=== PATIENT | female | born 1950 | race Caucasian/White ===

== ENCOUNTER 2018-01-10 13:59 | Inpatient (IN) | payer MEDICARE ==
[~2018-01-10] VITALS: Ht 162.6 cm; Wt 99.3 kg
[2018-01-10] MEDS: IV DEXTROSE 5 %-0.45 % NACL 1,000 ML IV SCH (16:45)
[2018-01-10 17:00] VITALS: BP 149/76
[2018-01-10] MEDS: ONDANSETRON PF 4 MG/2 ML VIAL. IV PRN (17:47)
[2018-01-10] MEDS: fentaNYL PF VIAL 100 MCG/2 ML VIAL IV PRN ×2 (17:56→20:24)
[2018-01-10] MEDS: MEROPENEM 1 GM in IV NORMAL SALINE 100ML 100 ML IV SCH (17:57)
[2018-01-10 19:00] VITALS: BP_SYST 130; BP_SYST 132; BP_DIAS 70; BP_DIAS 80
[2018-01-10] MEDS ORDERED: LISI-338 PO (20:13)
[2018-01-10 23:00] VITALS: BP 119/68
[2018-01-11] MEDS: IV DEXTROSE 5 %-0.45 % NACL 1,000 ML IV SCH (00:02)
[2018-01-11] MEDS: MEROPENEM 1 GM in IV NORMAL SALINE 100ML 100 ML IV SCH ×4 (00:03→21:38)
[2018-01-11] MEDS: fentaNYL PF VIAL 100 MCG/2 ML VIAL IV PRN ×5 (00:03→19:51)
[2018-01-11 03:00] VITALS: BP 143/101
[2018-01-11 04:13] LABS: BASO % 1 % (0-3); EOS % 1 % (0-3); HEMATOCRIT 45.7 % (36.0-47.0); LYMPH # 1.1 x10^3/uL (1.0-4.8); LYMPH % 13 % (24-48); MEAN CORPUSCULAR HEMOGLOBIN 33 pg (25-35); MEAN CORPUSCULAR HGB CONC 35 g/dL (31-37); MEAN CORPUSCULAR VOLUME 93 fL (79-100); MONO # 0.5 x10^3/uL (0.0-1.1); MONO % 6 % (0-9); NEUT # 6.3 x10^3uL (1.8-7.7); NEUT % 80 % (31-73); PLATELET COUNT 217 x10^3/uL (140-400); RED BLOOD COUNT 4.92 x10^6/uL (3.50-5.40); RED CELL DISTRIBUTION WIDTH 14.1 % (11.5-14.5)
[2018-01-11 04:18] LABS: PROTHROMBIN TIME PATIENT 12.8 SEC (11.7-14.0)
[2018-01-11 04:23] LABS: CALCIUM 11.2 mg/dL (8.5-10.1); CREATININE 0.8 mg/dL (0.6-1.0); GFR 71.1; POTASSIUM 3.2 mmol/L (3.5-5.1)
[2018-01-11 04:29] LABS: ALBUMIN 3.7 g/dL (3.4-5.0); ALBUMIN/GLOBULIN RATIO 1.1 (1.0-1.7); TOTAL PROTEIN 7.2 g/dL (6.4-8.2)
[2018-01-11 07:00] VITALS: BP 124/75
[2018-01-11] MEDS ORDERED: IV NORMAL SALINE 1000ML BAG 1,000 ML IV SCH (09:00)
--- NOTE | 2018-01-11 09:04 | PDOC2 ---
GI CONSULT Reason For Consult: Gallstone Pancreatitis HPI: HPI: Patricia Conde is a 67 years old female patient with past medical history of hypertension and fibromyalgia. She is currently admitted to the hospital as a transfer from [facility] with concern of gall stone pancreatitis She presented to out side hospital with abdominal pain of several days. She also has not been feeling well lately with decreased oral intake. She also reported to have yellowish discoloration of the eyes.She had battery of blood tests and imaging of abdomen and pelvis at [facility] that was concerning for gall stone pancreatitis. Blood work done on 01/10 was notable for elevated liver function tests with total bilirubin 7.7, AST 236, ALT 261 and ALP 230. Lipase was elevated to 59,500. Imaging with CT 01/10/2018 notable for numerous gall stones. There was also stones (measuring 0.7x0.4x1.2cm) identified in the distal common bile duct which was dilated up to 1.1cm. Patient now reports that her abdominal pain has improved. She reports she feels hungry and would like to start eating again. She denies fever, chills or sweating. No chest pain, sob or PND. No vomiting, hematemesis,melena or hematochezia. She denies any other acute symptoms. She denies heavy alcohol consumption or use of illicit drugs. FH: Family History: No pertinent hx Social History: ALCOHOL: rare Drugs: None ROS: GEN: Denies fevers, chills, sweats HEENT: Denies blurred vision, sore throat CV: Denies chest pain RESP: Denies shortness of air, cough GI: Per HPI : Denies hematuria, dysuria ENDO: Denies weight changes NEURO: Denies confusion, dizziness MSK: Denies weakness, joint pain/swelling SKIN: Denies jaundice, pruritus Vitals: Vitals: Vital Signs Date Time Temp Pulse Resp B/P (MAP) Pulse Ox O2 Delivery O2 Flow Rate FiO2 01/11/18 07:00 98.0 73 18 124/75 (91) 96 Room Air 98.0 Labs: Labs: Laboratory Tests Test 01/11/18 03:30 White Blood Count 8.0 x10^3/uL (4.0-11.0) Red Blood Count 4.92 x10^6/uL (3.50-5.40) Hemoglobin 16.0 g/dL (12.0-15.5) Hematocrit 45.7 % (36.0-47.0) Mean Corpuscular Volume 93 fL (79-100) Mean Corpuscular Hemoglobin 33 pg (25-35) Mean Corpuscular Hemoglobin Concent 35 g/dL (31-37) Red Cell Distribution Width 14.1 % (11.5-14.5) Platelet Count 217 x10^3/uL (140-400) Neutrophils (%) (Auto) 80 % (31-73) Lymphocytes (%) (Auto) 13 % (24-48) Monocytes (%) (Auto) 6 % (0-9) Eosinophils (%) (Auto) 1 % (0-3) Basophils (%) (Auto) 1 % (0-3) Neutrophils # (Auto) 6.3 x10^3uL (1.8-7.7) Lymphocytes # (Auto) 1.1 x10^3/uL (1.0-4.8) Monocytes # (Auto) 0.5 x10^3/uL (0.0-1.1) Eosinophils # (Auto) 0.0 x10^3/uL (0.0-0.7) Basophils # (Auto) 0.0 x10^3/uL (0.0-0.2) Prothrombin Time 12.8 SEC (11.7-14.0) Prothromb Time International Ratio 1.0 (0.8-1.1) Sodium Level 144 mmol/L (136-145) Potassium Level 3.2 mmol/L (3.5-5.1) Chloride Level 106 mmol/L (98-107) Carbon Dioxide Level 25 mmol/L (21-32) Anion Gap 13 (6-14) Blood Urea Nitrogen 15 mg/dL (7-20) Creatinine 0.8 mg/dL (0.6-1.0) Estimated GFR (Cockcroft-Gault) 71.1 BUN/Creatinine Ratio 19 (6-20) Glucose Level 97 mg/dL (70-99) Calcium Level 11.2 mg/dL (8.5-10.1) Total Bilirubin 8.0 mg/dL (0.2-1.0) Aspartate Amino Transf (AST/SGOT) 172 U/L (15-37) Alanine Aminotransferase (ALT/SGPT) 217 U/L (14-59) Alkaline Phosphatase 247 U/L (46-116) Total Protein 7.2 g/dL (6.4-8.2) Albumin 3.7 g/dL (3.4-5.0) Albumin/Globulin Ratio 1.1 (1.0-1.7) Lipase 94350 U/L (73-393) Allergies: Coded Allergies: hydrocodone (Verified Allergy, Severe, Shortness of Air, 01/10/18) iodine (Verified Allergy, Severe, Shortness of Air, 01/10/18) Penicillins (Verified Allergy, Intermediate, Hives, 01/10/18) TOLERATES ROCEPHIN codeine (Verified Allergy, Intermediate, Rash, 01/10/18) Medications: Current Medications Medications (Trade) Dose Ordered Sig/Priti Route PRN Reason Start Time Stop Time Status Last Admin Dose Admin Fentanyl Citrate (Fentanyl 2ml Vial) 50 mcg PRN Q2HR PRN IV PAIN 01/10/18 16:45 01/11/18 06:11 Ondansetron HCl (Zofran) 4 mg PRN Q4HRS PRN IV NAUSEA/VOMITING 01/10/18 16:45 01/10/18 17:47 Dextrose/Sodium Chloride 1,000 ml @ 100 mls/hr Q10H IV 01/10/18 16:45 01/11/18 00:02 Meropenem 1 gm/ Sodium Chloride 100 ml @ 200 mls/hr Q8HRS IV 01/10/18 17:30 01/11/18 06:10 Imaging: Imaging: CT OF ABDOMEN AND PELVIS WITH IV CONTRAST 01/10/2018 - Cholelithiasis. - Choledocholithiasis with common biliary ductal dilation. -Peripancreatic inflammatory changes extending inferior to the third portion of duodenum. -Possible nabothian cyst in the urinary bladder. PE: GEN: NAD HEENT: Atraumatic, PERRLA LUNGS: CTAB HEART: RRR, no murmurs ABD: Full abdomen that moves with respiration. Has direct tenderness in upper abdomen. No guarding or rebound tenderness. EXTREMITY: No edema SKIN: No rashes, no jaundice NEURO/PSYCH: A & O 3 A/P: A/P: Patricia Conde is a 67 years old female patient with past medical history of hypertension and fibromyalgia. She is currently admitted to the hospital as a transfer from [facility] with concern of gall stone pancreatitis after she presented with abdominal pain. her labs were notable for elevated liver function tests with total bilirubin 7.7, AST 236, ALT 261 and alkaline phosphatase 230. Lipase was elevated to 59, 500. Imaging with CT 01/10/2018 notable for numerous gall stones along with choledocholithiasis with evidence of stones measuring 0.7x0.4x1.2cm identified in the distal common bile duct which was dilated up to 1.1cm. Overall, her symptoms including abdominal pain is improving. Reviewed also her labs from this morning and noted AST was 172, ALT 217, ALP 247 and total bilirubin 8.0. Lipase was [address]. Recommendations - Advise to start CLD for today. - IV hydration with isotonic crystalloids 200 cc per hour. - Please send for blood cultures. - Continue with iv antibiotics as per primary team. - Continue with pain management. - NPO after midnight. - ERCP tomorrow. - Needs to have cholecystectomy before patient discharged from hospital. This was discussed with . - GI available for any Q's. MEGGAN YARBROUGH MD Jan 11, 2018 09:04
--- NOTE | 2018-01-11 09:32 | PDOC2 ---
CONSULT Date of Consult Date of Consult DATE: 01/11/18 TIME: 09:28 Reason for Consult Reason for Consult: Abdominal pain Referring Physician Referring Physician: Fran Identification/Chief Complaint Chief Complaint Abdominal pain Source Source: Patient History of Present Illness Reason for Visit: 67-year-old female who's had right upper quadrant abdominal pain radiating to her back she also has noticed yellowing color of her urine. She states that she has had some abdominal or stomach pain for the last 7 months the most recently was more severe and she was concerned with yellowing color of her urine and skin. Past Medical History Cardiovascular: No pertinent hx Pulmonary: No pertinent hx GI: No pertinent hx Heme/Onc: No pertinent hx Hepatobiliary: No pertinent hx Psych: No pertinent hx Rheumatologic: No pertinent hx Infectious disease: No pertinent hx Renal/: No pertinent hx Endocrine: No pertinent hx Dermatology: No pertinent hx Past Surgical History Past Surgical History: Tubal Ligation Family History Family History: No Significant Social History No ALCOHOL: rare Drugs: None Lives: with Family Current Medications Current Medications Current Medications Fentanyl Citrate (Fentanyl 2ml Vial) 50 mcg PRN Q2HR PRN IV PAIN Last administered on 01/11/18at 06:11; Start 01/10/18 at 16:45 Ondansetron HCl (Zofran) 4 mg PRN Q4HRS PRN IV NAUSEA/VOMITING Last administered on 01/10/18at 17:47; Start 01/10/18 at 16:45 Dextrose/Sodium Chloride 1,000 ml @ 100 mls/hr Q10H IV Last administered on at 00:02; Start 01/10/18 at 16:45; Stop 01/11/18 at 08:49; Status DC Meropenem 1 gm/ Sodium Chloride 100 ml @ 200 mls/hr Q8HRS IV Last administered on 01/11/18at 06:10; Start 01/10/18 at 17:30 Sodium Chloride 1,000 ml @ 150 mls/hr Q6H40M IV ; Start 01/11/18 at 09:00 Active Scripts Active Reported Lisinopril 5 Mg Tablet 1 Tab PO DAILY Allergies Allergies: Coded Allergies: hydrocodone (Verified Allergy, Severe, Shortness of Air, 01/10/18) iodine (Verified Allergy, Severe, Shortness of Air, 01/10/18) Penicillins (Verified Allergy, Intermediate, Hives, 01/10/18) TOLERATES ROCEPHIN codeine (Verified Allergy, Intermediate, Rash, 01/10/18) ROS Gastrointestinal: Yes Abdominal Pain Physical Exam General: Alert, Oriented X3, Cooperative, mild distress HEENT: Atraumatic, PERRLA, EOMI Lungs: Clear to auscultation, Normal air movement Heart: Regular rate, No murmurs Abdomen: Normal bowel sounds, Soft, Other (mildly tender in the right upper quadrant) Extremities: No edema Skin: No significant lesion Neuro: Normal speech Psych/Mental Status: Mental status NL Vitals VITALS Vital Signs Date Time Temp Pulse Resp B/P (MAP) Pulse Ox O2 Delivery O2 Flow Rate FiO2 01/11/18 07:00 98.0 73 18 124/75 (91) 96 Room Air 98.0 Labs Labs Laboratory Tests Test 01/11/18 03:30 White Blood Count 8.0 x10^3/uL (4.0-11.0) Red Blood Count 4.92 x10^6/uL (3.50-5.40) Hemoglobin 16.0 g/dL (12.0-15.5) Hematocrit 45.7 % (36.0-47.0) Mean Corpuscular Volume 93 fL (79-100) Mean Corpuscular Hemoglobin 33 pg (25-35) Mean Corpuscular Hemoglobin Concent 35 g/dL (31-37) Red Cell Distribution Width 14.1 % (11.5-14.5) Platelet Count 217 x10^3/uL (140-400) Neutrophils (%) (Auto) 80 % (31-73) Lymphocytes (%) (Auto) 13 % (24-48) Monocytes (%) (Auto) 6 % (0-9) Eosinophils (%) (Auto) 1 % (0-3) Basophils (%) (Auto) 1 % (0-3) Neutrophils # (Auto) 6.3 x10^3uL (1.8-7.7) Lymphocytes # (Auto) 1.1 x10^3/uL (1.0-4.8) Monocytes # (Auto) 0.5 x10^3/uL (0.0-1.1) Eosinophils # (Auto) 0.0 x10^3/uL (0.0-0.7) Basophils # (Auto) 0.0 x10^3/uL (0.0-0.2) Prothrombin Time 12.8 SEC (11.7-14.0) Prothromb Time International Ratio 1.0 (0.8-1.1) Sodium Level 144 mmol/L (136-145) Potassium Level 3.2 mmol/L (3.5-5.1) Chloride Level 106 mmol/L (98-107) Carbon Dioxide Level 25 mmol/L (21-32) Anion Gap 13 (6-14) Blood Urea Nitrogen 15 mg/dL (7-20) Creatinine 0.8 mg/dL (0.6-1.0) Estimated GFR (Cockcroft-Gault) 71.1 BUN/Creatinine Ratio 19 (6-20) Glucose Level 97 mg/dL (70-99) Calcium Level 11.2 mg/dL (8.5-10.1) Total Bilirubin 8.0 mg/dL (0.2-1.0) Aspartate Amino Transf (AST/SGOT) 172 U/L (15-37) Alanine Aminotransferase (ALT/SGPT) 217 U/L (14-59) Alkaline Phosphatase 247 U/L (46-116) Total Protein 7.2 g/dL (6.4-8.2) Albumin 3.7 g/dL (3.4-5.0) Albumin/Globulin Ratio 1.1 (1.0-1.7) Lipase 40368 U/L (73-393) Laboratory Tests Test 01/11/18 03:30 White Blood Count 8.0 x10^3/uL (4.0-11.0) Red Blood Count 4.92 x10^6/uL (3.50-5.40) Hemoglobin 16.0 g/dL (12.0-15.5) Hematocrit 45.7 % (36.0-47.0) Mean Corpuscular Volume 93 fL (79-100) Mean Corpuscular Hemoglobin 33 pg (25-35) Mean Corpuscular Hemoglobin Concent 35 g/dL (31-37) Red Cell Distribution Width 14.1 % (11.5-14.5) Platelet Count 217 x10^3/uL (140-400) Neutrophils (%) (Auto) 80 % (31-73) Lymphocytes (%) (Auto) 13 % (24-48) Monocytes (%) (Auto) 6 % (0-9) Eosinophils (%) (Auto) 1 % (0-3) Basophils (%) (Auto) 1 % (0-3) Neutrophils # (Auto) 6.3 x10^3uL (1.8-7.7) Lymphocytes # (Auto) 1.1 x10^3/uL (1.0-4.8) Monocytes # (Auto) 0.5 x10^3/uL (0.0-1.1) Eosinophils # (Auto) 0.0 x10^3/uL (0.0-0.7) Basophils # (Auto) 0.0 x10^3/uL (0.0-0.2) Prothrombin Time 12.8 SEC (11.7-14.0) Prothromb Time International Ratio 1.0 (0.8-1.1) Sodium Level 144 mmol/L (136-145) Potassium Level 3.2 mmol/L (3.5-5.1) Chloride Level 106 mmol/L (98-107) Carbon Dioxide Level 25 mmol/L (21-32) Anion Gap 13 (6-14) Blood Urea Nitrogen 15 mg/dL (7-20) Creatinine 0.8 mg/dL (0.6-1.0) Estimated GFR (Cockcroft-Gault) 71.1 BUN/Creatinine Ratio 19 (6-20) Glucose Level 97 mg/dL (70-99) Calcium Level 11.2 mg/dL (8.5-10.1) Total Bilirubin 8.0 mg/dL (0.2-1.0) Aspartate Amino Transf (AST/SGOT) 172 U/L (15-37) Alanine Aminotransferase (ALT/SGPT) 217 U/L (14-59) Alkaline Phosphatase 247 U/L (46-116) Total Protein 7.2 g/dL (6.4-8.2) Albumin 3.7 g/dL (3.4-5.0) Albumin/Globulin Ratio 1.1 (1.0-1.7) Lipase 63931 U/L (73-393) Images Images CT scan shows cholelithiasis and choledocholithiasis with inflammation of the pancreas Assessment/Plan Assessment/Plan Gallstone pancreatitis agree with GIs recommendation for ERCP and will follow with cholecystectomy once pancreatitis has resolved SANTOS DEUTSCH MD Jan 11, 2018 09:32
[2018-01-11] MEDS: POTASSIUM CL 40MEQ D5-0.45NACL 1,000 ML IV SCH ×3 (10:59→23:20)
[2018-01-11] MEDS: ONDANSETRON PF 4 MG/2 ML VIAL. IV PRN ×2 (11:03→16:37)
[2018-01-11 11:13] VITALS: BP 111/70
[2018-01-11 11:24] LABS: BILIRUBIN,URINE LARGE (NEG); CLARITY,URINE CLEAR; COLOR,URINE ORANGE; NITRITE,URINE NEGATIVE (NEG); PH,URINE 5.5; PROTEIN,URINE NEGATIVE (NEG-TRACE)
[2018-01-11 11:42] LABS: SQUAMOUS EPITHELIAL CELL,UR MOD /LPF
[2018-01-11 11:43] LABS: BACTERIA,URINE 0 /HPF (0-FEW); RBC,URINE 0 /HPF (0-2); WBC,URINE OCC /HPF (0-4)
--- NOTE | 2018-01-11 12:34 | HP ---
ADMIT DATE: 01/11/2018 HISTORY OF PRESENT ILLNESS: The patient is a 67-year-old female patient who was seen yesterday at [facility] Emergency Room with a complaint of right upper quadrant pain that apparently has been going on for almost 10 days. She has also some nausea, chills, has not been able to eat and was evaluated in the Emergency Room. Her lab work showed that her serum lipase was 59,500. Her liver enzymes are also markedly elevated, has had a CT scan of the abdomen, which showed that she has dilated intrahepatic and extrahepatic biliary tract, and was diagnosed with gallstone pancreatitis, was transferred to [facility] for further evaluation and to consult the surgical team as well as the foam fabricator. When she arrived to [facility] she continued to be in severe pain. We started her on fentanyl 50 mcg IV, IV fluid, kept her n.p.o. and added also meropenem as she has a biliary obstruction that might lead to ascending cholangitis, and we also consulted Dr. Calloway and Dr. Garcia. PAST MEDICAL HISTORY: Significant for hypertension, fibromyalgia, generalized osteoarthritis. PAST SURGICAL HISTORY: Significant for tubal ligation, hemorrhoidectomy. She also had colonoscopy and esophagogastroduodenoscopy. ALLERGIES: SHE IS ALLERGIC TO PENICILLIN, CODEINE, HYDROCODONE, AND IODINE. MEDICATIONS: She is on following medication at home: She is on lisinopril 5 mg once a day. She is also on ibuprofen 800 mg twice a day. FAMILY HISTORY: She has one sister older at the age of 72 and has diabetes. Her brother at age of 38 because of myocardial infarction. Her father at age of 83 and underwent bypass surgery x 3. Mother at the age of 93 and was healthy. SOCIAL HISTORY: She is , has 3 daughters. She has never smoked, never drank alcohol and never used any drugs. 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 REVIEW OF SYSTEMS: The patient denied any blurring of vision, cataract, glaucoma or macular degeneration. Denied any earache, tinnitus or sensorineural deafness. Denied any nosebleeds, stuffy nose or postnasal drip. She did complain of nausea, but no vomiting. Denied any diarrhea or constipation. Denied any hematemesis, melena or hematochezia. Denied any dysuria, frequency or hematuria. Denied any chest pain, shortness of breath, orthopnea or paroxysmal nocturnal dyspnea. Denied any cough, phlegm or hemoptysis. Did complain of chills, but denied any fevers or rigors. PHYSICAL EXAMINATION: GENERAL: When she arrived to the hospital, she looked pale, but no jaundice or cyanosis. No lymphadenopathy, no thyromegaly, no jugular venous distension. No lower limb edema. VITAL SIGNS: Her heart rate was 70, blood pressure 149/76, temperature was 97.9, respiratory rate 20, and oxygen saturation was 98%. HEAD, EYES, EARS, NOSE AND THROAT: Showed normocephalic, atraumatic. NECK: Supple. HEART: Showed normal first and second heart sounds. No gallop, rub or murmur. CHEST: Clear to auscultation. No crepitation or rhonchi. ABDOMEN: Distended with tenderness mostly in the right upper quadrant. There is no guarding or rigidity. No organomegaly. All hernial orifices intact. Bowel sounds normal. NEUROLOGIC: She is awake, alert, responding appropriately. All her cranial nerves are intact. She moves all extremities without difficulty. LABORATORY DATA: Her lab work that were done at the [facility] Emergency Room showed that her serum sodium was 136, potassium 3.4, chloride 102, bicarbonate 22, anion gap of 12, BUN 15, creatinine 0.8, estimated GFR was 71 mL per minute. Her glucose was 133, calcium was 11.6. Total bilirubin was 7.7, AST 236, ALT 261, alkaline phosphatase was 230. Her troponin was less than 0.017. Total protein was 7.1, albumin 4, globulin was 3.1. Her serum lipase was 59,500. Her white cell count was 10,000, hemoglobin was 16, hematocrit 45, MCV 91, and platelet count of 202,000 with normal manual differential. Her urinalysis showed urine was kailey colored with a pH of 5, specific gravity of 1.015, and there was large amount of bilirubin, a small amount of ketones. Urine was negative for blood, protein, nitrite and leukocyte esterase. She apparently has had a CT scan of the abdomen, which showed that evaluation of the solid abdominal viscera is limited without the use of IV contrast; however, the liver, spleen, adrenal glands are unremarkable. Numerous dense gallstones 0.7 x 0.4 x 1.2 cm stones in the distal common bile duct, associated biliary ductal dilatation with the common bile duct measuring up to 1.1 cm, peripancreatic inflammatory changes that extend inferior to the third portion of the duodenum. The kidneys are unremarkable. There is no significant mesenteric retroperitoneal adenopathy identified, though evaluation is limited without intravenous contrast. There is no evidence of free intraperitoneal fluid or pneumoperitoneum. The patient has mild colonic diverticulosis without evidence of diverticulitis, portion of the small and large bowel are relatively decompressed, which limits evaluation for wall thickening. Normal appendix, no evidence of obstruction, mild atherosclerosis of the abdominal aorta and its branches, small fat containing umbilical hernia. Her bladder was un-distended. There are possible nabothian cysts, not well evaluated, noncontrasted CT. There is no trace pelvic ascites. No significant iliac and inguinal lymphadenopathy identified and no acute osseous abdominal abnormality, with the impression that the patient has choledocholithiasis with common bile duct ductal dilatation, peripancreatic inflammatory changes, could be secondary to obstructive biliary ductal stone, acute pancreatitis not excluded. She has inflammatory changes also extending inferior to the third portion of the duodenum. This also may be reactive to the above process, although duodenitis not excluded, cholelithiasis, however, no pericholecystic fluid or gallbladder wall thickening. PLAN: The patient was started on IV fluid, IV antibiotic, fentanyl 50 mcg IV every 3 hours, together with Zofran 4 mg IV every 4 hours. We will consult Dr. Calloway, the surgeon production planner, as well as the foam fabricator. We will monitor her lab work closely. She will probably require ERCP and eventually cholecystectomy. SAM BURTON MD DR: RUDDY/eugene JOB#: [id number] / [id number]
[2018-01-11 15:00] VITALS: BP 149/76
[2018-01-11 19:00] VITALS: BP 151/74
--- NOTE | 2018-01-11 20:17 | PN ---
DATE: 01/11/2018 SUBJECTIVE: The patient was admitted yesterday with gallstone pancreatitis. She was kept n.p.o., started on IV fluid, IV pain medication and prophylactic antibiotics. When I saw her this morning, she was sitting up in bed, eating her breakfast. Her pain is much better controlled. She has denied any nausea or vomiting. OBJECTIVE: GENERAL: When I saw her this morning, she looked well. There is no pallor, but she is jaundiced, not cyanosed. No lymphadenopathy, no thyromegaly. No jugular venous distension. No lower limb edema. VITAL SIGNS: Her heart rate was 73, blood pressure was 124/75, temperature was 98, respiratory rate was 18 and oxygen saturation was 96%. HEAD, EYES, EARS, NOSE AND THROAT: Normocephalic, atraumatic. NECK: Supple. HEART: Showed normal first and second sounds. No gallop, rub or murmur. CHEST: Clear to auscultation. No crepitation or rhonchi. ABDOMEN: Distended, soft, no tenderness. No guarding or rigidity. No organomegaly with hernial orifice intact. Bowel sounds normal. NEUROLOGIC: She is awake, alert, responding appropriately. All cranial nerves are intact. She moves extremities without difficulty. Her intake over the last 24 hours was 1465. No output was recorded. LABORATORY DATA: Her lab work this morning showed that her white cell count was 8000, hemoglobin 16, hematocrit 45, MCV 93, and platelet count of 217,000. Her prothrombin time was 12.8, INR of 1. Her chemistry showed serum sodium of potassium 3.2, chloride 106, bicarbonate 25, anion gap of 13, BUN 15, creatinine 0.8, estimated GFR was 71 mL per minute. Her glucose was 97, calcium was high at 11.2. Her total bilirubin 8. AST, ALT, alkaline phosphatase are all elevated. Total protein was 7.2, albumin was 3.7. Her lipase is down to 12,440. ASSESSMENT: Gallstone pancreatitis, cholelithiasis and choledocholithiasis, cholestatic jaundice, hypertension and hypercalcemia as well as hypokalemia. PLAN: To change IV fluid to D5 half normal with 40 mEq of potassium chloride. I will check her intact PTH as she probably has primary hyperparathyroidism as well as serum phosphorus. Meanwhile, we will continue with fentanyl as well as ondansetron for pain and antiemetic, and meropenem to prevent ascending cholangitis. SAM BURTON MD DR: RUDDY/eugene JOB#: [id number] / [id number]
[2018-01-11 23:00] VITALS: BP 122/74
[2018-01-12] MEDS: fentaNYL PF VIAL 100 MCG/2 ML VIAL IV PRN ×6 (02:08→20:34)
[2018-01-12] MEDS: ONDANSETRON PF 4 MG/2 ML VIAL. IV PRN ×2 (02:08→10:23)
[2018-01-12 03:00] VITALS: BP 136/74
[2018-01-12] MEDS: POTASSIUM CL 40MEQ D5-0.45NACL 1,000 ML IV SCH ×3 (05:45→16:52)
[2018-01-12] MEDS: MEROPENEM 1 GM in IV NORMAL SALINE 100ML 100 ML IV SCH ×3 (05:45→20:35)
[2018-01-12 07:00] VITALS: BP 112/77
[2018-01-12] MEDS ORDERED: LIDOCAINE 1% PF 2 ML VIAL. ID PRN (07:45)
[2018-01-12] MEDS ORDERED: fentaNYL PF VIAL 100 MCG/2 ML VIAL IV PRN ×2 (07:45)
[2018-01-12] MEDS ORDERED: MIDAZOLAM HCL/PF 2 MG/2 ML VIAL. IV PRN (07:45)
[2018-01-12 08:05] LABS: ALBUMIN 2.9 g/dL (3.4-5.0); ALBUMIN/GLOBULIN RATIO 0.8 (1.0-1.7); CALCIUM 10.7 mg/dL (8.5-10.1); CREATININE 0.7 mg/dL (0.6-1.0); PHOSPHORUS 1.3 mg/dL (2.6-4.7); TOTAL BILIRUBIN 3.5 mg/dL (0.2-1.0); TOTAL PROTEIN 6.4 g/dL (6.4-8.2)
--- NOTE | 2018-01-12 08:35 | PDOC ---
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[employer] INSTRUCTOR 01/12/18 0835: SURGICAL PROGRESS NOTE Subjective some RUQ pain, controlled with meds no emesis Vital Signs Vital Signs Date Time Temp Pulse Resp B/P (MAP) Pulse Ox O2 Delivery O2 Flow Rate FiO2 01/12/18 07:00 98.5 69 18 112/77 (89) 96 Room Air 98.5 I&O Intake and Output 01/12/18 07:00 Intake Total 5690 ml Balance 5690 ml Intake Oral 750 ml IV Total 3020 ml Other 1920 ml # Voids 9 # Bowel Movements 1 General: Alert, Oriented X3, Cooperative, No acute distress Abdomen: Soft, Other (RUQ TTP) Labs Laboratory Tests Test 01/11/18 03:30 01/11/18 10:30 01/12/18 07:20 White Blood Count 8.0 x10^3/uL (4.0-11.0) Red Blood Count 4.92 x10^6/uL (3.50-5.40) Hemoglobin 16.0 g/dL (12.0-15.5) Hematocrit 45.7 % (36.0-47.0) Mean Corpuscular Volume 93 fL (79-100) Mean Corpuscular Hemoglobin 33 pg (25-35) Mean Corpuscular Hemoglobin Concent 35 g/dL (31-37) Red Cell Distribution Width 14.1 % (11.5-14.5) Platelet Count 217 x10^3/uL (140-400) Neutrophils (%) (Auto) 80 % (31-73) Lymphocytes (%) (Auto) 13 % (24-48) Monocytes (%) (Auto) 6 % (0-9) Eosinophils (%) (Auto) 1 % (0-3) Basophils (%) (Auto) 1 % (0-3) Neutrophils # (Auto) 6.3 x10^3uL (1.8-7.7) Lymphocytes # (Auto) 1.1 x10^3/uL (1.0-4.8) Monocytes # (Auto) 0.5 x10^3/uL (0.0-1.1) Eosinophils # (Auto) 0.0 x10^3/uL (0.0-0.7) Basophils # (Auto) 0.0 x10^3/uL (0.0-0.2) Prothrombin Time 12.8 SEC (11.7-14.0) Prothromb Time International Ratio 1.0 (0.8-1.1) Sodium Level 144 mmol/L (136-145) 139 mmol/L (136-145) Potassium Level 3.2 mmol/L (3.5-5.1) 4.0 mmol/L (3.5-5.1) Chloride Level 106 mmol/L (98-107) 106 mmol/L (98-107) Carbon Dioxide Level 25 mmol/L (21-32) 25 mmol/L (21-32) Anion Gap 13 (6-14) 8 (6-14) Blood Urea Nitrogen 15 mg/dL (7-20) 9 mg/dL (7-20) Creatinine 0.8 mg/dL (0.6-1.0) 0.7 mg/dL (0.6-1.0) Estimated GFR (Cockcroft-Gault) 71.1 83.0 BUN/Creatinine Ratio 19 (6-20) 13 (6-20) Glucose Level 97 mg/dL (70-99) 130 mg/dL (70-99) Calcium Level 11.2 mg/dL (8.5-10.1) 10.7 mg/dL (8.5-10.1) Total Bilirubin 8.0 mg/dL (0.2-1.0) 3.5 mg/dL (0.2-1.0) Aspartate Amino Transf (AST/SGOT) 172 U/L (15-37) 77 U/L (15-37) Alanine Aminotransferase (ALT/SGPT) 217 U/L (14-59) 131 U/L (14-59) Alkaline Phosphatase 247 U/L (46-116) 194 U/L (46-116) Total Protein 7.2 g/dL (6.4-8.2) 6.4 g/dL (6.4-8.2) Albumin 3.7 g/dL (3.4-5.0) 2.9 g/dL (3.4-5.0) Albumin/Globulin Ratio 1.1 (1.0-1.7) 0.8 (1.0-1.7) Lipase 51279 U/L (73-393) Urine Collection Type Unknown Urine Color [place] Urine Clarity Clear Urine pH 5.5 Urine Specific [place] 1.020 Urine Protein Negative mg/dL (NEG-TRACE) Urine Glucose (UA) Negative mg/dL (NEG) Urine Ketones (Stick) 40 mg/dL (NEG) Urine Blood Negative (NEG) Urine Nitrite Negative (NEG) Urine Bilirubin Large (NEG) Urine Urobilinogen Dipstick 1.0 mg/dL (0.2 mg/dL) Urine Leukocyte Esterase Trace (NEG) Urine RBC 0 /HPF (0-2) Urine WBC Occ /HPF (0-4) Urine Squamous Epithelial Cells Mod /LPF Urine Bacteria 0 /HPF (0-FEW) Urine Mucus Slight /LPF Phosphorus Level 1.3 mg/dL (2.6-4.7) Laboratory Tests Test 01/11/18 10:30 01/12/18 07:20 Urine Collection Type Unknown Urine Color [place] Urine Clarity Clear Urine pH 5.5 Urine Specific [place] 1.020 Urine Protein Negative mg/dL (NEG-TRACE) Urine Glucose (UA) Negative mg/dL (NEG) Urine Ketones (Stick) 40 mg/dL (NEG) Urine Blood Negative (NEG) Urine Nitrite Negative (NEG) Urine Bilirubin Large (NEG) Urine Urobilinogen Dipstick 1.0 mg/dL (0.2 mg/dL) Urine Leukocyte Esterase Trace (NEG) Urine RBC 0 /HPF (0-2) Urine WBC Occ /HPF (0-4) Urine Squamous Epithelial Cells Mod /LPF Urine Bacteria 0 /HPF (0-FEW) Urine Mucus Slight /LPF Sodium Level 139 mmol/L (136-145) Potassium Level 4.0 mmol/L (3.5-5.1) Chloride Level 106 mmol/L (98-107) Carbon Dioxide Level 25 mmol/L (21-32) Anion Gap 8 (6-14) Blood Urea Nitrogen 9 mg/dL (7-20) Creatinine 0.7 mg/dL (0.6-1.0) Estimated GFR (Cockcroft-Gault) 83.0 BUN/Creatinine Ratio 13 (6-20) Glucose Level 130 mg/dL (70-99) Calcium Level 10.7 mg/dL (8.5-10.1) Phosphorus Level 1.3 mg/dL (2.6-4.7) Total Bilirubin 3.5 mg/dL (0.2-1.0) Aspartate Amino Transf (AST/SGOT) 77 U/L (15-37) Alanine Aminotransferase (ALT/SGPT) 131 U/L (14-59) Alkaline Phosphatase 194 U/L (46-116) Total Protein 6.4 g/dL (6.4-8.2) Albumin 2.9 g/dL (3.4-5.0) Albumin/Globulin Ratio 0.8 (1.0-1.7) Assessment/Plan t bili improved, ERCP planned today denice once improved pancreatitis SANTOS DEUTSCH MD 01/12/18 0853: SURGICAL PROGRESS NOTE Assessment/Plan Patient seen and examined by me. Doing better, some tenderness RUQ. Improving lab. Agree with Timi's assessment and plan for L/S Denice when pancreatitis has resolved JOSEPH MOLINA APRN Jan 12, 2018 08:35 SANTOS DEUTSCH MD Jan 12, 2018 08:53
[2018-01-12 11:00] VITALS: BP 118/78
[2018-01-12 12:13] LABS: CREATININE PTH 0.54 mg/dL (0.57-1.00); PHOSPHORUS PTH 1.2 mg/dL (2.5-4.5); PTH INTACT 136 pg/mL (15-65)
--- NOTE | 2018-01-12 12:44 | PN ---
DATE: 01/12/2018 SUBJECTIVE: The patient is resting slightly propped up in bed, no apparent distress. She continued to complain of mild right upper quadrant pain that is well controlled with pain medication. She is n.p.o. from midnight last night as she is scheduled for ERCP this morning. She is afebrile and her liver enzymes are trending down. Her bilirubin is down from 8 to 3.5. For some reason, lipase was not done. PHYSICAL EXAMINATION: GENERAL: When I examined her this morning, she looked well and continued to be jaundiced. No cyanosis. No lymphadenopathy, no thyromegaly. No jugular venous distention. No lower limb edema. VITAL SIGNS: Her heart rate was 69, blood pressure 112/77, temperature was 98.5, respiratory rate was 18 and oxygen saturation was 96% on room air. The rest of clinical examination is unremarkable, has not really changed. Her intake over the last 24 hours was 5619; output was not recorded. LABORATORY DATA: As of this morning, her serum sodium was 139, potassium 4, chloride 106, bicarbonate 25, anion gap of 8, BUN 9, creatinine 0.7, estimated GFR was 83 mL per minute, her glucose was 130 and calcium was 10.7. Phosphorus was 1.3. Total bilirubin was 3.5. AST, ALT and alkaline phosphatase were elevated, but trending down. Her total protein was 6.4. Calcium was 2.9. Her prothrombin time was 12.8. INR of 1. ASSESSMENT: 1. Gallstone pancreatitis with cholelithiasis and choledocholithiasis, for which she is scheduled for ERCP today. 2. Hypokalemia, resolved. Her potassium is up to 4. 3. Hypercalcemia and hypophosphatemia, consistent with probably primary hyperparathyroidism. I did order an intact PTH, the result of which is still pending at the time of this dictation. PLAN: My plan is to continue obviously with IV fluids, continue with IV antibiotic in the form of meropenem. Continue with pain management, antiemetic. I will repeat all her labs tomorrow and decide on further management accordingly. SAM BURTON MD DR: RUDDY/eugene JOB#: [id number] / [id number]
[2018-01-12] MEDS ORDERED: LIDOCAINE 2% PF Vial for OR 5 ML VIAL. ONE (12:56)
[2018-01-12] MEDS ORDERED: fentaNYL PF VIAL 100 MCG/2 ML VIAL ONE (12:56)
[2018-01-12] MEDS ORDERED: SUCCINYLCHOLINE 200 MG/10 ML VIAL. ONE (12:56)
[2018-01-12] MEDS ORDERED: PROPOFOL 20 ML IV ONE (12:56)
[2018-01-12] MEDS ORDERED: DEXAMETHASONE SOD PHOS 20 MG/5 ML VIAL. ONE (12:56)
[2018-01-12] MEDS ORDERED: ONDANSETRON PF 4 MG/2 ML VIAL. ONE (12:56)
[2018-01-12] MEDS ORDERED: FAMOTIDINE 20 MG/2 ML VIAL ONE (12:56)
[2018-01-12] MEDS ORDERED: IV RINGERS,LACTATED 1000ML 1,000 ML IV ONE (13:15)
[2018-01-12] MEDS: IV RINGERS,LACTATED 1000ML 1,000 ML IV SCH ×2 (13:51→15:43)
[2018-01-12] MEDS ORDERED: IOHEXOL 300 MG/ML 100ML VIAL. ONE (13:57)
--- NOTE | 2018-01-12 14:50 | PDOC4 ---
PROCEDURE Procedure ERCP/ES/balloon sweep Indication: gallstone pancreatitis/imaging suggestive of choledocholithiasis MED: GETA per anesthesia Findings: E--not well seen due to nature of instrument. G--Cursory exam OK D--Several shallow ulcerations in second portion w/o bleeding. Papilla-traumatized? PD--normal CBD--no stone seen and not particularly dilated. ES done. Several balloon sweeps w/o anything exiting. --Occlusion cholangiogram also done and no stones. Alex. well. IMP: Suspect any stone passed spontaneously. Shallow duodenal ulcerations likely from adjacent pancreatitis/innocent bystander effect. REC: If no pain, OK to try clears. PPI if not on. Denice when feasible. Thanks. GHASSAN HOWELL MD Jan 12, 2018 14:50
[2018-01-12 15:00] VITALS: BP 141/74
[2018-01-12 19:00] VITALS: BP 138/77
[2018-01-12 23:00] VITALS: BP 120/75
[2018-01-13] MEDS: fentaNYL PF VIAL 100 MCG/2 ML VIAL IV PRN ×4 (00:37→20:36)
[2018-01-13] MEDS: POTASSIUM CL 40MEQ D5-0.45NACL 1,000 ML IV SCH ×4 (00:38→20:35)
[2018-01-13 03:00] VITALS: BP 135/79
[2018-01-13 05:24] LABS: BASO % 0 % (0-3); EOS % 0 % (0-3); HEMATOCRIT 38.2 % (36.0-47.0); HEMOGLOBIN 13.4 g/dL (12.0-15.5); LYMPH # 0.6 x10^3/uL (1.0-4.8); LYMPH % 11 % (24-48); MEAN CORPUSCULAR HEMOGLOBIN 33 pg (25-35); MEAN CORPUSCULAR HGB CONC 35 g/dL (31-37); MEAN CORPUSCULAR VOLUME 93 fL (79-100); MONO # 0.4 x10^3/uL (0.0-1.1); MONO % 7 % (0-9); NEUT % 83 % (31-73); PLATELET COUNT 174 x10^3/uL (140-400); RED BLOOD COUNT 4.11 x10^6/uL (3.50-5.40); RED CELL DISTRIBUTION WIDTH 13.9 % (11.5-14.5); WHITE BLOOD COUNT 6.1 x10^3/uL (4.0-11.0)
[2018-01-13] MEDS: MEROPENEM 1 GM in IV NORMAL SALINE 100ML 100 ML IV SCH ×3 (05:44→20:42)
[2018-01-13 05:54] LABS: ALBUMIN 3.2 g/dL (3.4-5.0); ALBUMIN/GLOBULIN RATIO 0.9 (1.0-1.7); CALCIUM 11.8 mg/dL (8.5-10.1); CREATININE 0.7 mg/dL (0.6-1.0); POTASSIUM 4.7 mmol/L (3.5-5.1); TOTAL BILIRUBIN 3.3 mg/dL (0.2-1.0); TOTAL PROTEIN 6.6 g/dL (6.4-8.2)
[2018-01-13 07:00] VITALS: BP 135/82
--- NOTE | 2018-01-13 09:49 | PDOC ---
JOSEPH MOLINA PREPRESS STRIPPER 01/13/18 0949: SURGICAL PROGRESS NOTE Subjective pain improved no n/v Vital Signs Vital Signs Date Time Temp Pulse Resp B/P (MAP) Pulse Ox O2 Delivery O2 Flow Rate FiO2 01/13/18 08:00 Room Air 01/13/18 07:00 97.9 66 18 135/82 (99) 97 97.9 01/12/18 14:57 4 I&O Intake and Output 01/13/18 07:00 Intake Total 2180 ml Balance 2180 ml Intake Oral 0 ml IV Total 1500 ml Other 680 ml # Voids 8 # Bowel Movements 3 General: Alert, Oriented X3, Cooperative, No acute distress Abdomen: Soft, Other (mild epigastric ttp) Labs Laboratory Tests Test 01/11/18 10:30 01/12/18 07:20 01/13/18 04:11 Urine Collection Type Unknown Urine Color [place] Urine Clarity Clear Urine pH 5.5 Urine Specific [place] 1.020 Urine Protein Negative mg/dL (NEG-TRACE) Urine Glucose (UA) Negative mg/dL (NEG) Urine Ketones (Stick) 40 mg/dL (NEG) Urine Blood Negative (NEG) Urine Nitrite Negative (NEG) Urine Bilirubin Large (NEG) Urine Urobilinogen Dipstick 1.0 mg/dL (0.2 mg/dL) Urine Leukocyte Esterase Trace (NEG) Urine RBC 0 /HPF (0-2) Urine WBC Occ /HPF (0-4) Urine Squamous Epithelial Cells Mod /LPF Urine Bacteria 0 /HPF (0-FEW) Urine Mucus Slight /LPF Sodium Level 139 mmol/L (136-145) 137 mmol/L (136-145) Potassium Level 4.0 mmol/L (3.5-5.1) 4.7 mmol/L (3.5-5.1) Chloride Level 106 mmol/L (98-107) 104 mmol/L (98-107) Carbon Dioxide Level 25 mmol/L (21-32) 26 mmol/L (21-32) Anion Gap 8 (6-14) 7 (6-14) Blood Urea Nitrogen 9 mg/dL (7-20) 7 mg/dL (7-20) Creatinine 0.7 mg/dL (0.6-1.0) 0.7 mg/dL (0.6-1.0) Estimated GFR (Non- 97 (>59) Estimated GFR (Cockcroft-Gault) 83.0 83.0 BUN/Creatinine Ratio 13 (6-20) 10 (6-20) Glucose Level 130 mg/dL (70-99) 154 mg/dL (70-99) Calcium Level 10.7 mg/dL (8.5-10.1) 11.8 mg/dL (8.5-10.1) Phosphorus Level 1.3 mg/dL (2.6-4.7) Total Bilirubin 3.5 mg/dL (0.2-1.0) 3.3 mg/dL (0.2-1.0) Aspartate Amino Transf (AST/SGOT) 77 U/L (15-37) 81 U/L (15-37) Alanine Aminotransferase (ALT/SGPT) 131 U/L (14-59) 135 U/L (14-59) Alkaline Phosphatase 194 U/L (46-116) 212 U/L (46-116) Total Protein 6.4 g/dL (6.4-8.2) 6.6 g/dL (6.4-8.2) Albumin 2.9 g/dL (3.4-5.0) 3.2 g/dL (3.4-5.0) Albumin/Globulin Ratio 0.8 (1.0-1.7) 0.9 (1.0-1.7) EGFR 111 (>59) PTH (Intact) Specimen Description Comment (.) Parathyroid Hormone (Intact) 136 pg/mL (15-65) Calcium (PTH Intact) 11.0 mg/dL (8.7-10.3) Creatinine (PTH Intact) 0.54 mg/dL (0.57-1.00) Phosphorus (PTH Intact) 1.2 mg/dL (2.5-4.5) White Blood Count 6.1 x10^3/uL (4.0-11.0) Red Blood Count 4.11 x10^6/uL (3.50-5.40) Hemoglobin 13.4 g/dL (12.0-15.5) Hematocrit 38.2 % (36.0-47.0) Mean Corpuscular Volume 93 fL (79-100) Mean Corpuscular Hemoglobin 33 pg (25-35) Mean Corpuscular Hemoglobin Concent 35 g/dL (31-37) Red Cell Distribution Width 13.9 % (11.5-14.5) Platelet Count 174 x10^3/uL (140-400) Neutrophils (%) (Auto) 83 % (31-73) Lymphocytes (%) (Auto) 11 % (24-48) Monocytes (%) (Auto) 7 % (0-9) Eosinophils (%) (Auto) 0 % (0-3) Basophils (%) (Auto) 0 % (0-3) Neutrophils # (Auto) 5.0 x10^3uL (1.8-7.7) Lymphocytes # (Auto) 0.6 x10^3/uL (1.0-4.8) Monocytes # (Auto) 0.4 x10^3/uL (0.0-1.1) Eosinophils # (Auto) 0.0 x10^3/uL (0.0-0.7) Basophils # (Auto) 0.0 x10^3/uL (0.0-0.2) Lipase 316 U/L (73-393) Laboratory Tests Test 01/13/18 04:11 White Blood Count 6.1 x10^3/uL (4.0-11.0) Red Blood Count 4.11 x10^6/uL (3.50-5.40) Hemoglobin 13.4 g/dL (12.0-15.5) Hematocrit 38.2 % (36.0-47.0) Mean Corpuscular Volume 93 fL (79-100) Mean Corpuscular Hemoglobin 33 pg (25-35) Mean Corpuscular Hemoglobin Concent 35 g/dL (31-37) Red Cell Distribution Width 13.9 % (11.5-14.5) Platelet Count 174 x10^3/uL (140-400) Neutrophils (%) (Auto) 83 % (31-73) Lymphocytes (%) (Auto) 11 % (24-48) Monocytes (%) (Auto) 7 % (0-9) Eosinophils (%) (Auto) 0 % (0-3) Basophils (%) (Auto) 0 % (0-3) Neutrophils # (Auto) 5.0 x10^3uL (1.8-7.7) Lymphocytes # (Auto) 0.6 x10^3/uL (1.0-4.8) Monocytes # (Auto) 0.4 x10^3/uL (0.0-1.1) Eosinophils # (Auto) 0.0 x10^3/uL (0.0-0.7) Basophils # (Auto) 0.0 x10^3/uL (0.0-0.2) Sodium Level 137 mmol/L (136-145) Potassium Level 4.7 mmol/L (3.5-5.1) Chloride Level 104 mmol/L (98-107) Carbon Dioxide Level 26 mmol/L (21-32) Anion Gap 7 (6-14) Blood Urea Nitrogen 7 mg/dL (7-20) Creatinine 0.7 mg/dL (0.6-1.0) Estimated GFR (Cockcroft-Gault) 83.0 BUN/Creatinine Ratio 10 (6-20) Glucose Level 154 mg/dL (70-99) Calcium Level 11.8 mg/dL (8.5-10.1) Total Bilirubin 3.3 mg/dL (0.2-1.0) Aspartate Amino Transf (AST/SGOT) 81 U/L (15-37) Alanine Aminotransferase (ALT/SGPT) 135 U/L (14-59) Alkaline Phosphatase 212 U/L (46-116) Total Protein 6.6 g/dL (6.4-8.2) Albumin 3.2 g/dL (3.4-5.0) Albumin/Globulin Ratio 0.9 (1.0-1.7) Lipase 316 U/L (73-393) Problem List gs pancreatitis OR planned clears ok today Assessment/Plan noted elevated PTH levels--may need additional work up of this SANTOS DEUTSCH MD 01/13/18 1022: SURGICAL PROGRESS NOTE Assessment/Plan Patient seen and examined by me no acute changes improving labs and pain. Abdomen is soft nondistended with normal active bowel sounds mildly tender the right upper quadrant. Shakir Canales assessment and plan for laparoscopic cholecystectomy 01/15/2018 JOSEPH MOLINA APRN Jan 13, 2018 09:49 SANTOS DEUTSCH MD Jan 13, 2018 10:22
--- NOTE | 2018-01-13 10:20 | PN ---
DATE: 01/13/2018 SUBJECTIVE: The patient is resting, slightly propped up in bed, in no apparent respiratory distress. On questioning her, denied any complaint, in particular she has no more pain in her right upper quadrant. She has had an ERCP done yesterday that apparently did not find any stones in her common bile duct, and the marshmallow machine worker okayed her to try clears, to start her on PPI, if not on, to consider cholecystectomy when feasible. Her intact PTH was high at 136. Her calcium was continued to be high at 11, and her phosphorus was low at 1.2, all consistent with primary hyperparathyroidism. Her serum lipase is down from 59,000-316, which is well within normal range. PHYSICAL EXAMINATION: GENERAL: When I examined her this morning, she looked well and was clearly in no apparent respiratory distress, slightly pale, but no jaundice or cyanosis. No thyromegaly. No jugular venous distension. No lower limb edema. VITAL SIGNS: Her heart rate was 66, blood pressure was 135/82, temperature was 97.9, respiratory rate was 18 and oxygen saturation was 97%. HEAD, EYES, EARS, NOSE AND THROAT: Showed normocephalic, atraumatic. NECK: Supple. HEART: Showed normal first and second heart sounds with no gallop, rub or murmur. CHEST: Clear to auscultation. No crepitation or rhonchi. ABDOMEN: Distended, soft, nontender. No guarding or rigidity. No organomegaly. All hernial orifice intact. Bowel sounds normal. NEUROLOGIC: She was awake, alert, responding appropriately. Cranial nerves intact. She moves all extremities without difficulty. She ambulates without assistance or assistive devices. Her intake over the last 24 hours was 5690, no output was recorded. LABORATORY DATA: As of this morning, her white cell count was 6100, hemoglobin 13, hematocrit 38, MCV 93, and platelet count of 174,000. Her chemistry showed a serum sodium 137, potassium 4.7, chloride 104, bicarbonate 26, anion gap of 7, BUN 7, creatinine 0.7, estimated GFR was 83 mL per minute. Her glucose was 154, calcium was high at 11.8. Total bilirubin 3.3. AST, ALT, alkaline phosphatase continued to be elevated, although trending down. Her total protein was 6.6, albumin 3.2. Lipase was 316. ASSESSMENT: 1. Gallstone pancreatitis with cholelithiasis and choledocholithiasis on the CT scan; however, on ERCP, apparently all the stones must have passed spontaneously. 2. Hypokalemia, resolved. Her most recent potassium is 4.7. 3. Hypercalcemia and hypophosphatemia and markedly elevated intact PTH all consistent with primary hyperparathyroidism. PLAN: My plan is to continue with IV fluid, IV antibiotic. The patient is allowed to have clear liquid diet. Given that hypercalcemia itself can cause pancreatitis, I am not sure which one should be tackled first, and I will discuss this with the surgical team. SAM BURTON MD DR: RUDDY/eugene JOB#: [id number] / [id number]
[2018-01-13 11:00] VITALS: BP 121/79
--- NOTE | 2018-01-13 13:57 | PDOC ---
G I PROGRESS NOTE Subjective Some upper abdominal pain, but much improved from admission. Able to tolerate some liquids. Physical Exam Lungs clear. RRR Abdomen soft, not tender nor distended. Review of Relevant I have reviewed the following items julia (where applicable) has been applied. Labs Laboratory Tests Test 01/12/18 07:20 01/13/18 04:11 Sodium Level 139 mmol/L (136-145) 137 mmol/L (136-145) Potassium Level 4.0 mmol/L (3.5-5.1) 4.7 mmol/L (3.5-5.1) Chloride Level 106 mmol/L (98-107) 104 mmol/L (98-107) Carbon Dioxide Level 25 mmol/L (21-32) 26 mmol/L (21-32) Anion Gap 8 (6-14) 7 (6-14) Blood Urea Nitrogen 9 mg/dL (7-20) 7 mg/dL (7-20) Creatinine 0.7 mg/dL (0.6-1.0) 0.7 mg/dL (0.6-1.0) Estimated GFR (Non- 97 (>59) Estimated GFR (Cockcroft-Gault) 83.0 83.0 BUN/Creatinine Ratio 13 (6-20) 10 (6-20) Glucose Level 130 mg/dL (70-99) 154 mg/dL (70-99) Calcium Level 10.7 mg/dL (8.5-10.1) 11.8 mg/dL (8.5-10.1) Phosphorus Level 1.3 mg/dL (2.6-4.7) Total Bilirubin 3.5 mg/dL (0.2-1.0) 3.3 mg/dL (0.2-1.0) Aspartate Amino Transf (AST/SGOT) 77 U/L (15-37) 81 U/L (15-37) Alanine Aminotransferase (ALT/SGPT) 131 U/L (14-59) 135 U/L (14-59) Alkaline Phosphatase 194 U/L (46-116) 212 U/L (46-116) Total Protein 6.4 g/dL (6.4-8.2) 6.6 g/dL (6.4-8.2) Albumin 2.9 g/dL (3.4-5.0) 3.2 g/dL (3.4-5.0) Albumin/Globulin Ratio 0.8 (1.0-1.7) 0.9 (1.0-1.7) EGFR 111 (>59) PTH (Intact) Specimen Description Comment (.) Parathyroid Hormone (Intact) 136 pg/mL (15-65) Calcium (PTH Intact) 11.0 mg/dL (8.7-10.3) Creatinine (PTH Intact) 0.54 mg/dL (0.57-1.00) Phosphorus (PTH Intact) 1.2 mg/dL (2.5-4.5) White Blood Count 6.1 x10^3/uL (4.0-11.0) Red Blood Count 4.11 x10^6/uL (3.50-5.40) Hemoglobin 13.4 g/dL (12.0-15.5) Hematocrit 38.2 % (36.0-47.0) Mean Corpuscular Volume 93 fL (79-100) Mean Corpuscular Hemoglobin 33 pg (25-35) Mean Corpuscular Hemoglobin Concent 35 g/dL (31-37) Red Cell Distribution Width 13.9 % (11.5-14.5) Platelet Count 174 x10^3/uL (140-400) Neutrophils (%) (Auto) 83 % (31-73) Lymphocytes (%) (Auto) 11 % (24-48) Monocytes (%) (Auto) 7 % (0-9) Eosinophils (%) (Auto) 0 % (0-3) Basophils (%) (Auto) 0 % (0-3) Neutrophils # (Auto) 5.0 x10^3uL (1.8-7.7) Lymphocytes # (Auto) 0.6 x10^3/uL (1.0-4.8) Monocytes # (Auto) 0.4 x10^3/uL (0.0-1.1) Eosinophils # (Auto) 0.0 x10^3/uL (0.0-0.7) Basophils # (Auto) 0.0 x10^3/uL (0.0-0.2) Lipase 316 U/L (73-393) Laboratory Tests Test 01/13/18 04:11 White Blood Count 6.1 x10^3/uL (4.0-11.0) Red Blood Count 4.11 x10^6/uL (3.50-5.40) Hemoglobin 13.4 g/dL (12.0-15.5) Hematocrit 38.2 % (36.0-47.0) Mean Corpuscular Volume 93 fL (79-100) Mean Corpuscular Hemoglobin 33 pg (25-35) Mean Corpuscular Hemoglobin Concent 35 g/dL (31-37) Red Cell Distribution Width 13.9 % (11.5-14.5) Platelet Count 174 x10^3/uL (140-400) Neutrophils (%) (Auto) 83 % (31-73) Lymphocytes (%) (Auto) 11 % (24-48) Monocytes (%) (Auto) 7 % (0-9) Eosinophils (%) (Auto) 0 % (0-3) Basophils (%) (Auto) 0 % (0-3) Neutrophils # (Auto) 5.0 x10^3uL (1.8-7.7) Lymphocytes # (Auto) 0.6 x10^3/uL (1.0-4.8) Monocytes # (Auto) 0.4 x10^3/uL (0.0-1.1) Eosinophils # (Auto) 0.0 x10^3/uL (0.0-0.7) Basophils # (Auto) 0.0 x10^3/uL (0.0-0.2) Sodium Level 137 mmol/L (136-145) Potassium Level 4.7 mmol/L (3.5-5.1) Chloride Level 104 mmol/L (98-107) Carbon Dioxide Level 26 mmol/L (21-32) Anion Gap 7 (6-14) Blood Urea Nitrogen 7 mg/dL (7-20) Creatinine 0.7 mg/dL (0.6-1.0) Estimated GFR (Cockcroft-Gault) 83.0 BUN/Creatinine Ratio 10 (6-20) Glucose Level 154 mg/dL (70-99) Calcium Level 11.8 mg/dL (8.5-10.1) Total Bilirubin 3.3 mg/dL (0.2-1.0) Aspartate Amino Transf (AST/SGOT) 81 U/L (15-37) Alanine Aminotransferase (ALT/SGPT) 135 U/L (14-59) Alkaline Phosphatase 212 U/L (46-116) Total Protein 6.6 g/dL (6.4-8.2) Albumin 3.2 g/dL (3.4-5.0) Albumin/Globulin Ratio 0.9 (1.0-1.7) Lipase 316 U/L (73-393) Microbiology 01/11/18 Blood Culture - Preliminary, Resulted NO GROWTH AFTER 2 DAYS 01/11/18 Urine Culture - Final, Complete 01/11/18 Urine Culture Result 1 (REGLA) - Final, Complete Abnormal PTH testing noted. LFT's flat. Lipase normal. Vitals/I & O Vital Sign - Last 24 Hours 01/12/18 01/12/18 01/12/18 01/12/18 14:57 15:00 15:11 15:28 Temp 98.1 98.6 98.1 98.6 Pulse 82 78 85 82 Resp 16 18 18 16 B/P (MAP) 179/94 141/74 (96) 189/87 149/68 Pulse Ox 98 95 96 96 O2 Delivery Room Air Room Air Room Air Room Air Nasal Cannula O2 Flow Rate 4 01/12/18 01/12/18 01/12/18 01/12/18 15:40 17:03 17:30 19:00 Temp 97.9 97.9 Pulse 82 76 Resp 18 16 16 18 B/P (MAP) 147/67 138/77 (97) Pulse Ox 96 92 O2 Delivery Room Air Room Air Room Air 01/12/18 01/12/18 01/12/18 01/13/18 20:00 20:34 23:00 00:37 Temp 98.3 98.3 Pulse 74 Resp 18 B/P (MAP) 120/75 (90) Pulse Ox 95 O2 Delivery Room Air Room Air Room Air Room Air 01/13/18 01/13/18 01/13/18 01/13/18 03:00 05:44 06:14 07:00 Temp 98.9 97.9 98.9 97.9 Pulse 65 66 Resp 18 18 B/P (MAP) 135/79 (97) 135/82 (99) Pulse Ox 95 97 O2 Delivery Room Air Room Air Room Air Room Air 01/13/18 01/13/18 08:00 11:00 Temp 98.2 98.2 Pulse 61 Resp 18 B/P (MAP) 121/79 (93) Pulse Ox 97 O2 Delivery Room Air Room Air Intake and Output 01/12/18 01/12/18 01/13/18 15:00 23:00 07:00 Intake Total 680 ml 1500 ml Balance 680 ml 1500 ml Problem List Biliary pancreatitis, improved. Assessment Note plans for brittaney; will follow. GHASSAN HOWELL MD Jan 13, 2018 13:57
[2018-01-13 15:00] VITALS: BP 130/81
[2018-01-13 19:51] VITALS: BP 138/74
[2018-01-13 23:11] VITALS: BP 144/74
[2018-01-14] MEDS: fentaNYL PF VIAL 100 MCG/2 ML VIAL IV PRN ×5 (01:34→21:05)
[2018-01-14] MEDS: POTASSIUM CL 40MEQ D5-0.45NACL 1,000 ML IV SCH (01:35)
[2018-01-14 03:50] VITALS: BP 124/69
[2018-01-14] MEDS: MEROPENEM 1 GM in IV NORMAL SALINE 100ML 100 ML IV SCH ×3 (05:40→21:05)
[2018-01-14 05:52] LABS: CALCIUM 11.6 mg/dL (8.5-10.1); CREATININE 0.6 mg/dL (0.6-1.0); GFR 99.1; POTASSIUM 4.4 mmol/L (3.5-5.1)
[2018-01-14 07:00] VITALS: BP 117/73
--- NOTE | 2018-01-14 08:58 | PDOC ---
Subjective: Subjective: Feels really gassy - says lots of flatulence yesterday and overnight, also burping some. Feels bloated. A little concerned that she hasn't stooled but also acknowledges she's only had clear liquids. Right abd soreness. Thinks her left shoulder is sore w/ limited range of motion from ERCP - says her daughter is a massage therapist and will fix it. Objective: Vital Signs: Vital Signs Date Time Temp Pulse Resp B/P (MAP) Pulse Ox O2 Delivery O2 Flow Rate FiO2 01/14/18 07:00 98.4 61 18 117/73 (88) 94 Room Air 98.4 Labs: Laboratory Tests Test 01/14/18 03:35 Sodium Level 139 mmol/L Potassium Level 4.4 mmol/L Chloride Level 105 mmol/L Carbon Dioxide Level 26 mmol/L Anion Gap 8 Blood Urea Nitrogen 8 mg/dL Creatinine 0.6 mg/dL Estimated GFR (Cockcroft-Gault) 99.1 Glucose Level 108 mg/dL Calcium Level 11.6 mg/dL Lipase 294 U/L PE: GEN: NAD, using spoon to take some apple juice LUNGS: CTAB HEART: RRR ABD: BS+, soft, mildly sore epigastrium/RUQ NEURO/PSYCH: A & O 3 A/P: Biliary pancreatitis - improved, s/p ERCP w/ ES and balloon sweep (no stone seen ) -- Plans for cholecystectomy tomorrow. KATHY CASTORENA Jan 14, 2018 08:58
[2018-01-14] MEDS: IV NORMAL SALINE 1000ML BAG 1,000 ML IV SCH ×3 (09:00→21:06)
[2018-01-14] MEDS ORDERED: FUROSEMIDE 20 MG/2 ML VIAL. IVP ONE (09:00)
[2018-01-14] MEDS ORDERED: POLYETHYLENE GLYCOL 3350 17 GM PACKET. PO PRN (09:00)
[2018-01-14] MEDS ORDERED: FUROSEMIDE 40 MG/4 ML VIAL. IVP ONE (09:00)
[2018-01-14 11:00] VITALS: BP 128/91
[2018-01-14] MEDS ORDERED: BENZOCAINE/MENTHOL LOZENGE. PO PRN (13:00)
--- NOTE | 2018-01-14 13:30 | PDOC ---
SURGICAL PROGRESS NOTE Subjective Patient doing quite well tolerating clear liquid diet no pain Vital Signs Vital Signs Date Time Temp Pulse Resp B/P (MAP) Pulse Ox O2 Delivery O2 Flow Rate FiO2 01/14/18 11:20 Room Air 01/14/18 11:00 97.7 72 18 128/91 (103) 90 97.7 I&O Intake and Output 01/14/18 07:00 # Voids 8 # Bowel Movements 2 PATIENT HAS A SEXTON: No General: Alert, Oriented X3, Cooperative, mild distress Abdomen: Normal bowel sounds, Soft, No tenderness Labs Laboratory Tests Test 01/13/18 04:11 01/14/18 03:35 White Blood Count 6.1 x10^3/uL (4.0-11.0) Red Blood Count 4.11 x10^6/uL (3.50-5.40) Hemoglobin 13.4 g/dL (12.0-15.5) Hematocrit 38.2 % (36.0-47.0) Mean Corpuscular Volume 93 fL (79-100) Mean Corpuscular Hemoglobin 33 pg (25-35) Mean Corpuscular Hemoglobin Concent 35 g/dL (31-37) Red Cell Distribution Width 13.9 % (11.5-14.5) Platelet Count 174 x10^3/uL (140-400) Neutrophils (%) (Auto) 83 % (31-73) Lymphocytes (%) (Auto) 11 % (24-48) Monocytes (%) (Auto) 7 % (0-9) Eosinophils (%) (Auto) 0 % (0-3) Basophils (%) (Auto) 0 % (0-3) Neutrophils # (Auto) 5.0 x10^3uL (1.8-7.7) Lymphocytes # (Auto) 0.6 x10^3/uL (1.0-4.8) Monocytes # (Auto) 0.4 x10^3/uL (0.0-1.1) Eosinophils # (Auto) 0.0 x10^3/uL (0.0-0.7) Basophils # (Auto) 0.0 x10^3/uL (0.0-0.2) Sodium Level 137 mmol/L (136-145) 139 mmol/L (136-145) Potassium Level 4.7 mmol/L (3.5-5.1) 4.4 mmol/L (3.5-5.1) Chloride Level 104 mmol/L (98-107) 105 mmol/L (98-107) Carbon Dioxide Level 26 mmol/L (21-32) 26 mmol/L (21-32) Anion Gap 7 (6-14) 8 (6-14) Blood Urea Nitrogen 7 mg/dL (7-20) 8 mg/dL (7-20) Creatinine 0.7 mg/dL (0.6-1.0) 0.6 mg/dL (0.6-1.0) Estimated GFR (Cockcroft-Gault) 83.0 99.1 BUN/Creatinine Ratio 10 (6-20) Glucose Level 154 mg/dL (70-99) 108 mg/dL (70-99) Calcium Level 11.8 mg/dL (8.5-10.1) 11.6 mg/dL (8.5-10.1) Total Bilirubin 3.3 mg/dL (0.2-1.0) Aspartate Amino Transf (AST/SGOT) 81 U/L (15-37) Alanine Aminotransferase (ALT/SGPT) 135 U/L (14-59) Alkaline Phosphatase 212 U/L (46-116) Total Protein 6.6 g/dL (6.4-8.2) Albumin 3.2 g/dL (3.4-5.0) Albumin/Globulin Ratio 0.9 (1.0-1.7) Lipase 316 U/L (73-393) 294 U/L (73-393) Laboratory Tests Test 01/14/18 03:35 Sodium Level 139 mmol/L (136-145) Potassium Level 4.4 mmol/L (3.5-5.1) Chloride Level 105 mmol/L (98-107) Carbon Dioxide Level 26 mmol/L (21-32) Anion Gap 8 (6-14) Blood Urea Nitrogen 8 mg/dL (7-20) Creatinine 0.6 mg/dL (0.6-1.0) Estimated GFR (Cockcroft-Gault) 99.1 Glucose Level 108 mg/dL (70-99) Calcium Level 11.6 mg/dL (8.5-10.1) Lipase 294 U/L (73-393) Assessment/Plan Gallstone pancreatitis plan for laparoscopic cholecystectomy in the a.m. SANTOS DEUTSCH MD Jan 14, 2018 13:30
[2018-01-14 15:00] VITALS: BP 117/66
--- NOTE | 2018-01-14 16:27 | PN ---
DATE: 01/14/2018 SUBJECTIVE: The patient is a 67-year-old female patient who was admitted with gallstone pancreatitis. She underwent ERCP and apparently no stones were found as probably they have passed spontaneously. Her serum lipase came down dramatically from 59,000-294. She also was incidentally found to have hypercalcemia and her intact PTH was high at 136, serum phosphorus is only 1.2, all consistent with primary hyperparathyroidism. When I saw her this morning, she looked well and was clearly in no apparent distress. On questioning her, denied any complaint. Apparently, she is scheduled tomorrow for laparoscopic cholecystectomy. PHYSICAL EXAMINATION: GENERAL: When I examined her, she looked pale, but no jaundice, cyanosis, or thyromegaly. No jugular venous distension. No lower limb edema. VITAL SIGNS: Her heart rate was 61, blood pressure 117/73, temperature was 98.4, respiratory rate was 18 and oxygen saturation was 94%. HEAD, EYES, EARS, NOSE AND THROAT: Normocephalic, atraumatic. NECK: Supple. HEART: Showed normal first and second sounds. No gallop, rub or murmur. CHEST: Clear to auscultation. No crepitation or rhonchi. ABDOMEN: Distended, soft, nontender. No guarding or rigidity. No organomegaly. Hernial orifices intact. Bowel sounds normal. NEUROLOGIC: She was awake, alert, responding appropriately with cranial nerves intact. She moves extremities without difficulty. Her intake over the last 24 hours was 2118. No output was recorded. LABORATORY DATA: As of this morning her serum sodium was 139, potassium 4.4, chloride 105, bicarbonate 26, anion gap of 8, BUN 8, creatinine 0.6, estimated GFR was 99 mL per minute. Her glucose 108, calcium was 11.6. ASSESSMENT: 1. Gallstone pancreatitis with cholelithiasis and choledocholithiasis on CT scan; however, on ERCP, apparently all the stones must have passed spontaneously. 2. Hypokalemia, resolved. Her most recent potassium is 4.4. 3. Hypercalcemia and hypophosphatemia with markedly elevated intact PTH are consistent with primary hyperparathyroidism. PLAN: My plan is to change her IV fluid to normal saline at 150 mL every 12 hours. She will be given also Lasix 20 mg IV once today and hopefully that bring the calcium down. She is scheduled for laparoscopic cholecystectomy tomorrow and she probably will ultimately need to have parathyroidectomy. SAM BURTON MD DR: RUDDY/eugene JOB#: [id number] / [id number]
[2018-01-14 19:00] VITALS: BP 136/72
[2018-01-14 23:00] VITALS: BP 139/97
[2018-01-15] VITALS (8 sets, daily range): BP systolic 58–161; BP diastolic 29–101
[2018-01-15] MEDS: fentaNYL PF VIAL 100 MCG/2 ML VIAL IV PRN ×10 (01:15→22:06)
[2018-01-15] MEDS: MEROPENEM 1 GM in IV NORMAL SALINE 100ML 100 ML IV SCH (05:44)
[2018-01-15] MEDS: IV NORMAL SALINE 1000ML BAG 1,000 ML IV SCH ×3 (05:44→18:20)
[2018-01-15] MEDS ORDERED: IOHEXOL 300 MG/ML 100ML VIAL. ONE (06:16)
[2018-01-15] MEDS ORDERED: BUPIVAC MPF-EPI 0.5%-1:200000 30 ML VIAL. ONE (06:16)
[2018-01-15 06:37] LABS: ALBUMIN/GLOBULIN RATIO 0.9 (1.0-1.7); CREATININE 0.6 mg/dL (0.6-1.0); GFR 99.1; POTASSIUM 3.9 mmol/L (3.5-5.1); TOTAL BILIRUBIN 2.2 mg/dL (0.2-1.0); TOTAL PROTEIN 6.3 g/dL (6.4-8.2)
[2018-01-15] MEDS: ONDANSETRON PF 4 MG/2 ML VIAL. IV PRN ×2 (08:38→14:12)
[2018-01-15] MEDS ORDERED: ROCURONIUM 50 MG/5 ML VIAL. ONE (10:18)
[2018-01-15] MEDS ORDERED: fentaNYL PF VIAL 100 MCG/2 ML VIAL ONE (10:18)
[2018-01-15] MEDS ORDERED: NEOSTIGMINE METHYLSULFATE 5 MG/5 ML SYRINGE. ONE (10:18)
[2018-01-15] MEDS ORDERED: LIDOCAINE 2% PF Vial for OR 5 ML VIAL. ONE (10:19)
[2018-01-15] MEDS ORDERED: MIDAZOLAM HCL/PF 2 MG/2 ML VIAL. ONE (10:19)
[2018-01-15] MEDS ORDERED: GLYCOPYRROLATE 1 MG/5 ML VIAL. ONE (10:19)
[2018-01-15] MEDS ORDERED: ONDANSETRON PF 4 MG/2 ML VIAL. ONE (10:19)
[2018-01-15] MEDS ORDERED: PROPOFOL 20 ML IV ONE (10:19)
[2018-01-15] MEDS ORDERED: DEXAMETHASONE SOD PHOS 20 MG/5 ML VIAL. ONE (10:19)
[2018-01-15] MEDS ORDERED: PROPOFOL 50 ML IV ONE (11:20)
[2018-01-15] MEDS ORDERED: ePHEDrine PF IN SALINE 50 MG/5 ML DISP.SYRIN IV ONE (11:20)
--- NOTE | 2018-01-15 11:34 | PDOC ---
Objective: Vital Signs: Vital Signs Date Time Temp Pulse Resp B/P (MAP) Pulse Ox O2 Delivery O2 Flow Rate FiO2 01/15/18 10:30 97.8 71 15 154/68 98 Room Air 97.8 Labs: Laboratory Tests Test 01/15/18 05:20 Sodium Level 138 mmol/L Potassium Level 3.9 mmol/L Chloride Level 104 mmol/L Carbon Dioxide Level 26 mmol/L Anion Gap 8 Blood Urea Nitrogen 8 mg/dL Creatinine 0.6 mg/dL Estimated GFR (Cockcroft-Gault) 99.1 BUN/Creatinine Ratio 13 Glucose Level 84 mg/dL Calcium Level 11.0 mg/dL Total Bilirubin 2.2 mg/dL Aspartate Amino Transf (AST/SGOT) 36 U/L Alanine Aminotransferase (ALT/SGPT) 80 U/L Alkaline Phosphatase 183 U/L Total Protein 6.3 g/dL Albumin 3.0 g/dL Albumin/Globulin Ratio 0.9 Lipase 238 U/L PE: out of room A/P: Biliary pancreatitis S/p ERCP -- Out for cholecystectomy, will follow. KATHY CASTORENA Jan 15, 2018 11:34
--- NOTE | 2018-01-15 12:25 | PDOC4 ---
Operative Note Operative Note Date: 01/15/2018 Preoperative diagnosis: Gallstone pancreatitis Postoperative diagnosis: Same Procedure: Laparoscopic cholecystectomy with intraoperative cholangiograms Surgeon: Brodie Specimen: Gallbladder Dictation: Patient is a 67-year-old female was admitted to the hospital with gallstone pancreatitis she underwent an ERCP was not found to have a common bile duct stone most likely had passed her liver enzymes and lipase resolved to normal. The procedure of laparoscopic cholecystectomy with intraoperative cholangiograms was explained to the patient detail was benefits were also discussed including bleeding infection injury to intra-abdominal contents possibly necessitating further or open operations. Alternatives to this procedure also discussed with patient seemed understanding gave both verbal and written consent to have the procedure performed. Patient was taken to the operating room placed in supine position general anesthesia was initiated once patient was asleep and intubated her abdomen was prepped and draped in usual sterile fashion using ChloraPrep. An area below the umbilicus was injected with quarter percent Marcaine with epinephrine incisions made lead blade scalpel varies needle was placed within the abdomen creating pneumoperitoneum once this was complete a 11 mm port was placed and a 5 mm camera was placed within the abdomen which was inspected no other at maladies were noted. A 5 mm port was placed in the epigastrium a second 5 mm port was placed in the right lateral abdomen and a third placed in the right mid abdomen. The dome of the gallbladder was grasped retracted cephalad the infundibulum the gallbladder's grasped retracted laterally exposing the triangle adherent tissues the triangle are taken down exposing the cystic duct and cystic artery the cystic duct was clipped on the gallbladder side partially open with Endo Jaya scissors and cholangiocatheter was placed to the anterior abdominal wall through 14-gauge Angiocath placed within the cystic duct and clipped into place. A cholangiogram was shot showing good retrograde and antegrade flow into the hepatic radicals as well as into the duodenum without any obstruction. The cholangiocatheter was removed the duct was doubly clipped and transected the cystic artery was transected and the gallbladder was taken off the liver with hook left cautery placed in Endo Catch bag and removed from the umbilicus the right upper quadrant was irrigated and suctioned dry hemostasis didn't be appropriate and the pneumoperitoneum was reduced all ports removed the fascial defect at the umbilicus closed [id number] Vicryl suture and the skin was approximate all port sites 4 septic Monocryl Mastisol Steri-Strips and Band-Aids were applied as dressings. Patient was waken expanded in the operating room taken recovery in stable condition all sponge instrument needle counts listed as correct estimated blood loss 10 mL SANTOS DEUTSCH MD Jan 15, 2018 12:25
[2018-01-15] MEDS ORDERED: oxyCODONE/APAP 5/325 1 TAB TABLET PO PRN ×2 (12:30)
[2018-01-15] MEDS ORDERED: IV RINGERS,LACTATED 1000ML 1,000 ML IV SCH (13:43)
[2018-01-15] MEDS ORDERED: ONDANSETRON PF 4 MG/2 ML VIAL. IV PRN (13:45)
[2018-01-15] MEDS ORDERED: PROCHLORPERAZINE 10 MG/2 ML VIAL. IV PRN (13:45)
[2018-01-15] MEDS ORDERED: MORPHINE SULFATE 2 MG/ML VIAL. IV PRN (13:45)
[2018-01-15] MEDS ORDERED: fentaNYL PF VIAL 100 MCG/2 ML VIAL IV PRN (13:45)
[2018-01-15] MEDS ORDERED: LIDOCAINE 1% PF 2 ML VIAL. ID PRN (13:45)
[2018-01-15] MEDS ORDERED: HYDROmorphone 2 MG/ML VIAL IV PRN (13:45)
--- NOTE | 2018-01-15 13:54 | RAD ---
Intraoperative cholangiogram, 01/15/2018: HISTORY: Cholecystectomy 2 spot films from surgery are presented for review. Contrast has been injected, presumably into the cystic duct, although the injection site is obscured by an overlying instrument. 17 seconds of fluoroscopy time was utilized. There is good flow contrast into the duodenum at the ampulla. No filling defect is seen in the common duct to suggest a retained calculus. The incompletely opacified intrahepatic ducts are unremarkable. Electronically signed by: Johnnie Ortiz MD (01/15/2018 1:51 PM) [facility]
--- NOTE | 2018-01-15 16:27 | RAD ---
ERCP, 01/12/2018: HISTORY: Common bile duct calculi 10 spot films from an ERCP performed by Dr. Mcallister are just now presented for review. 2 minutes and 22 seconds of fluoroscopy time was utilized. The biliary tree was partially opacified via an endoscopically placed catheter. Reportedly a sphincterotomy was performed with balloon sweeping of the duct. No definite common duct calculus is identified on these images. A portion of the pancreatic duct was opacified and it is unremarkable. Electronically signed by: Johnnie Ortiz MD (01/15/2018 4:24 PM) [facility]
[2018-01-16] MEDS ORDERED: ACETAMINOPHEN 325 MG TABLET. PO PRN (00:15)
[2018-01-16 01:21] LABS: HEMATOCRIT 39.2 % (36.0-47.0); HEMOGLOBIN 13.8 g/dL (12.0-15.5); RED BLOOD COUNT 4.26 x10^6/uL (3.50-5.40); RED CELL DISTRIBUTION WIDTH 13.7 % (11.5-14.5); WHITE BLOOD COUNT 6.5 x10^3/uL (4.0-11.0)
[2018-01-16 01:24] LABS: ALBUMIN 3.3 g/dL (3.4-5.0); ALBUMIN/GLOBULIN RATIO 0.9 (1.0-1.7); CALCIUM 11.3 mg/dL (8.5-10.1); CREATININE 0.7 mg/dL (0.6-1.0); TOTAL BILIRUBIN 1.8 mg/dL (0.2-1.0)
[2018-01-16] MEDS: IV NORMAL SALINE 1000ML BAG 1,000 ML IV SCH ×2 (02:00→08:38)
[2018-01-16 03:00] VITALS: BP 153/91
--- NOTE | 2018-01-16 04:28 | PN ---
DATE: SUBJECTIVE: The patient underwent her laparoscopic cholecystectomy successfully and arrived from the OR. She is still sleepy, but arousable. She denied any complaint. OBJECTIVE: GENERAL: On examining her, she looked well and was clearly in no apparent respiratory distress, slightly pale. No jaundice, cyanosis, or thyromegaly. No jugular venous distention. No limb edema. VITAL SIGNS: Her heart rate was 78, blood pressure was 123/61, temperature was 96.8, respiratory rate 20, and oxygen saturation was 95%. Her intake over the last 24 hours was 1700, no output was recorded. LABORATORY DATA: Her lab work this morning showed that her serum sodium 138, potassium 3.9, chloride 104, bicarbonate 26, anion gap of 8, BUN 8, creatinine 0.6, estimated GFR was 99 mL per minute. Her glucose was 84, calcium was 11. Total bilirubin 2.2. AST is normal, ALT and alkaline phosphatase are trending down. Total protein was 6.3, albumin 3. Serum lipase was 238. ASSESSMENT: 1. Gallstone pancreatitis, status post laparoscopic cholecystectomy with intraoperative cholangiogram. 2. Hypokalemia, resolved; hypercalcemia with elevated intact PTH and very low serum phosphorus, all consistent with primary hyperparathyroidism. PLAN: My plan is to continue with IV fluid for now. I will repeat her labs tomorrow and I will discontinue her meropenem, as there is no evidence she has . SAM BURTON MD DR: RUDDY/eugene JOB#: [id number] / [id number]
[2018-01-16 07:00] VITALS: BP 170/87
[2018-01-16 11:00] VITALS: BP 167/87
[2018-01-16] MEDS: fentaNYL PF VIAL 100 MCG/2 ML VIAL IV PRN (11:42)
--- NOTE | 2018-01-16 11:47 | PDOC ---
Infectious Disease Note Vital Sign Vital Signs Vital Signs Date Time Temp Pulse Resp B/P (MAP) Pulse Ox O2 Delivery O2 Flow Rate FiO2 01/16/18 08:00 Room Air 01/16/18 07:00 97.6 67 18 170/87 (114) 99 97.6 01/15/18 12:55 10 Labs Lab Laboratory Tests Test 01/16/18 00:55 White Blood Count 6.5 x10^3/uL (4.0-11.0) Red Blood Count 4.26 x10^6/uL (3.50-5.40) Hemoglobin 13.8 g/dL (12.0-15.5) Hematocrit 39.2 % (36.0-47.0) Mean Corpuscular Volume 92 fL (79-100) Mean Corpuscular Hemoglobin 32 pg (25-35) Mean Corpuscular Hemoglobin Concent 35 g/dL (31-37) Red Cell Distribution Width 13.7 % (11.5-14.5) Platelet Count 223 x10^3/uL (140-400) Sodium Level 135 mmol/L (136-145) Potassium Level 4.0 mmol/L (3.5-5.1) Chloride Level 101 mmol/L (98-107) Carbon Dioxide Level 27 mmol/L (21-32) Anion Gap 7 (6-14) Blood Urea Nitrogen 9 mg/dL (7-20) Creatinine 0.7 mg/dL (0.6-1.0) Estimated GFR (Cockcroft-Gault) 83.0 BUN/Creatinine Ratio 13 (6-20) Glucose Level 122 mg/dL (70-99) Calcium Level 11.3 mg/dL (8.5-10.1) Total Bilirubin 1.8 mg/dL (0.2-1.0) Aspartate Amino Transf (AST/SGOT) 44 U/L (15-37) Alanine Aminotransferase (ALT/SGPT) 82 U/L (14-59) Alkaline Phosphatase 195 U/L (46-116) Total Protein 7.0 g/dL (6.4-8.2) Albumin 3.3 g/dL (3.4-5.0) Albumin/Globulin Ratio 0.9 (1.0-1.7) Micro Microbiology 01/11/18 Blood Culture - Final, Complete NO GROWTH AFTER 5 DAYS 01/11/18 Urine Culture - Final, Complete 01/11/18 Urine Culture Result 1 (REGLA) - Final, Complete Objective Assessment One isolated fever S/P cholecystectomy Gall stone pancreatitis Arthritis Fibromyalgia Plan Plan of Care no need for antibiotics pt can be d/c ed from ID stand point ANKUR JO MD Jan 16, 2018 11:47
--- NOTE | 2018-01-16 12:01 | PDOC ---
SURGICAL PROGRESS NOTE Subjective tolerating diet feels better no n/v had bm Vital Signs Vital Signs Date Time Temp Pulse Resp B/P (MAP) Pulse Ox O2 Delivery O2 Flow Rate FiO2 01/16/18 11:42 99 Room Air 01/16/18 07:00 97.6 67 18 170/87 (114) 97.6 01/15/18 12:55 10 I&O Intake and Output 01/16/18 07:00 Intake Total 6940 ml Output Total 825 ml Balance 6115 ml Intake Oral 900 ml IV Total 3620 ml Other 2420 ml Output Urine Total 800 ml Estimated Blood Loss 25 ml # Voids 10 # Bowel Movements 2 General: Alert, Oriented X3, Cooperative, No acute distress Abdomen: Soft, Other (lap dressings dry) Labs Laboratory Tests Test 01/15/18 05:20 01/16/18 00:55 Sodium Level 138 mmol/L (136-145) 135 mmol/L (136-145) Potassium Level 3.9 mmol/L (3.5-5.1) 4.0 mmol/L (3.5-5.1) Chloride Level 104 mmol/L (98-107) 101 mmol/L (98-107) Carbon Dioxide Level 26 mmol/L (21-32) 27 mmol/L (21-32) Anion Gap 8 (6-14) 7 (6-14) Blood Urea Nitrogen 8 mg/dL (7-20) 9 mg/dL (7-20) Creatinine 0.6 mg/dL (0.6-1.0) 0.7 mg/dL (0.6-1.0) Estimated GFR (Cockcroft-Gault) 99.1 83.0 BUN/Creatinine Ratio 13 (6-20) 13 (6-20) Glucose Level 84 mg/dL (70-99) 122 mg/dL (70-99) Calcium Level 11.0 mg/dL (8.5-10.1) 11.3 mg/dL (8.5-10.1) Total Bilirubin 2.2 mg/dL (0.2-1.0) 1.8 mg/dL (0.2-1.0) Aspartate Amino Transf (AST/SGOT) 36 U/L (15-37) 44 U/L (15-37) Alanine Aminotransferase (ALT/SGPT) 80 U/L (14-59) 82 U/L (14-59) Alkaline Phosphatase 183 U/L (46-116) 195 U/L (46-116) Total Protein 6.3 g/dL (6.4-8.2) 7.0 g/dL (6.4-8.2) Albumin 3.0 g/dL (3.4-5.0) 3.3 g/dL (3.4-5.0) Albumin/Globulin Ratio 0.9 (1.0-1.7) 0.9 (1.0-1.7) Lipase 238 U/L (73-393) White Blood Count 6.5 x10^3/uL (4.0-11.0) Red Blood Count 4.26 x10^6/uL (3.50-5.40) Hemoglobin 13.8 g/dL (12.0-15.5) Hematocrit 39.2 % (36.0-47.0) Mean Corpuscular Volume 92 fL (79-100) Mean Corpuscular Hemoglobin 32 pg (25-35) Mean Corpuscular Hemoglobin Concent 35 g/dL (31-37) Red Cell Distribution Width 13.7 % (11.5-14.5) Platelet Count 223 x10^3/uL (140-400) Laboratory Tests Test 01/16/18 00:55 White Blood Count 6.5 x10^3/uL (4.0-11.0) Red Blood Count 4.26 x10^6/uL (3.50-5.40) Hemoglobin 13.8 g/dL (12.0-15.5) Hematocrit 39.2 % (36.0-47.0) Mean Corpuscular Volume 92 fL (79-100) Mean Corpuscular Hemoglobin 32 pg (25-35) Mean Corpuscular Hemoglobin Concent 35 g/dL (31-37) Red Cell Distribution Width 13.7 % (11.5-14.5) Platelet Count 223 x10^3/uL (140-400) Sodium Level 135 mmol/L (136-145) Potassium Level 4.0 mmol/L (3.5-5.1) Chloride Level 101 mmol/L (98-107) Carbon Dioxide Level 27 mmol/L (21-32) Anion Gap 7 (6-14) Blood Urea Nitrogen 9 mg/dL (7-20) Creatinine 0.7 mg/dL (0.6-1.0) Estimated GFR (Cockcroft-Gault) 83.0 BUN/Creatinine Ratio 13 (6-20) Glucose Level 122 mg/dL (70-99) Calcium Level 11.3 mg/dL (8.5-10.1) Total Bilirubin 1.8 mg/dL (0.2-1.0) Aspartate Amino Transf (AST/SGOT) 44 U/L (15-37) Alanine Aminotransferase (ALT/SGPT) 82 U/L (14-59) Alkaline Phosphatase 195 U/L (46-116) Total Protein 7.0 g/dL (6.4-8.2) Albumin 3.3 g/dL (3.4-5.0) Albumin/Globulin Ratio 0.9 (1.0-1.7) Problem List s/p brittaney isolated temp x 1 last night lab ok d/w ID ok to dc from surgical POV FU in clinic with JOSEPH Browning APRN Jan 16, 2018 12:01
[2018-01-16] MEDS ORDERED: OXYC1TAB7 PO (12:03)
[2018-01-16] MEDS ORDERED: TRAM50TA PO (14:40)
[2018-01-16] MEDS ORDERED: IBUP-1060 PO (14:40)
--- NOTE | 2018-01-16 14:52 | PDOC ---
Subjective: Subjective: Hopeful to go home. Tolerating PO and stooling. Objective: Vital Signs: Vital Signs Date Time Temp Pulse Resp B/P (MAP) Pulse Ox O2 Delivery O2 Flow Rate FiO2 01/16/18 12:13 99 Room Air 10.0 01/16/18 11:00 97.9 82 16 167/87 (113) 97.9 Labs: Laboratory Tests Test 01/16/18 00:55 White Blood Count 6.5 x10^3/uL Red Blood Count 4.26 x10^6/uL Hemoglobin 13.8 g/dL Hematocrit 39.2 % Mean Corpuscular Volume 92 fL Mean Corpuscular Hemoglobin 32 pg Mean Corpuscular Hemoglobin Concent 35 g/dL Red Cell Distribution Width 13.7 % Platelet Count 223 x10^3/uL Sodium Level 135 mmol/L Potassium Level 4.0 mmol/L Chloride Level 101 mmol/L Carbon Dioxide Level 27 mmol/L Anion Gap 7 Blood Urea Nitrogen 9 mg/dL Creatinine 0.7 mg/dL Estimated GFR (Cockcroft-Gault) 83.0 BUN/Creatinine Ratio 13 Glucose Level 122 mg/dL Calcium Level 11.3 mg/dL Total Bilirubin 1.8 mg/dL Aspartate Amino Transf (AST/SGOT) 44 U/L Alanine Aminotransferase (ALT/SGPT) 82 U/L Alkaline Phosphatase 195 U/L Total Protein 7.0 g/dL Albumin 3.3 g/dL Albumin/Globulin Ratio 0.9 Imaging: IOC There is good flow contrast into the duodenum at the ampulla. No filling defect is seen in the common duct to suggest a retained calculus. The incompletely opacified intrahepatic ducts are unremarkable. PE: GEN: NAD LUNGS: CTAB HEART: RRR ABD: NABS, S/ND/NT NEURO/PSYCH: A & O 3 A/P: Biliary pancreatitis s/p ERCP and cholecystectomy -- DC per surgery. Follow-up w/ GI PRN. KATHY CASTORENA Jan 16, 2018 14:52
--- NOTE | 2018-01-16 19:18 | DS ---
DATE OF DISCHARGE: 01/16/2018 HOSPITAL COURSE: The patient was admitted with abdominal pain and was diagnosed with gallstone pancreatitis. She underwent ERCP; however, at that time, common bile duct showed no evidence of any gallstones. Apparently, all the stone was passed spontaneously. Her investigation showed also that her calcium was high and her intact PTH was high at 136. Serum phosphorus is extremely low at 1.2. Did have also hypokalemia that was treated and then eventually, she underwent laparoscopic cholecystectomy successfully. Postoperatively, she did very well and has been tolerating her food without difficulty. Her labs are stable as well as vital signs, and a decision was made to discharge her home. PHYSICAL EXAMINATION: GENERAL: When I saw her today, she looked well and was clearly in no apparent respiratory distress. No pallor or jaundice, slightly pale, but no jaundice, cyanosis or thyromegaly. No jugular venous distension. No lower limb edema. VITAL SIGNS: Her heart rate was 82, blood pressure was 167/87, temperature was 97.9, respiratory rate was 16 and oxygen saturation was 99%. HEAD, EYES, EARS, NOSE AND THROAT: Normocephalic, atraumatic. NECK: Supple. HEART: Showed normal first and second heart sounds with no gallop, rub or murmur. CHEST: Clear to auscultation. No crepitation or rhonchi. ABDOMEN: Distended, soft, nontender. No guarding or rigidity. No organomegaly. All hernial orifices intact. Bowel sounds normal. NEUROLOGIC: She was awake, alert, responding appropriately. All cranial nerves intact. She moves extremities without difficulty. She ambulates without assistance or assistive devices. Her intake over the last 24 hours was 6940, output was 825. LABORATORY DATA: As of this morning, her white cell count was 6500, hemoglobin 13.8, hematocrit 39, MCV 92 and platelet count 223,000. Her chemistry showed a serum sodium of 135, potassium 4, chloride 101, bicarbonate 27, anion gap of 7, BUN 9, creatinine 0.7, estimated GFR was 83 mL per minute. Her glucose was 122, calcium was 11.3. Total bilirubin still slightly elevated at 1.8. AST, ALT, alkaline phosphatase are elevated, although they are trending down. Her total protein is 7, albumin was 3.3. DISCHARGE MEDICATIONS: She was discharged home to continue on tramadol 50 mg every 6 hours as needed for pain, lisinopril 5 mg once a day and ibuprofen 800 mg twice a day with food. FINAL DISCHARGE DIAGNOSES: 1. Gallstone pancreatitis, status post laparoscopic cholecystectomy with intraoperative cholangiogram. 2. Hypokalemia, resolved. 3. Hypercalcemia with elevated intact PTH and very low serum phosphorus are consistent with primary hyperparathyroidism. 4. The patient was discharged to follow with her primary care physician. She was given a copy of her intact parathyroid as well as serum calcium and phosphorus. She will probably eventually require parathyroidectomy. SAM BURTON MD DR: RUDDY/eugene JOB#: [id number] / [id number]
--- NOTE | 2018-01-17 01:52 | CONS ---
DATE OF CONSULTATION: 01/16/2018 REQUESTING PHYSICIAN: Dr. Peters. REASON FOR CONSULTATION: Fever. HISTORY OF PRESENT ILLNESS: This is a 67-year-old female who was transferred from [facility]. The patient presented there with abdominal pain. The patient was found to have 59,000 of lipase. The patient's further testing and CT showed gallstone pancreatitis. The patient was transferred here. She underwent ERCP and then, a cholecystectomy. The patient is doing really well. The patient is eating and having bowel movement and walking. She had last night 101.1 temperature, hence consultation. The patient, in fact, was on meropenem that has been discontinued yesterday. The patient denies any cough, denies any shortness of breath, denies any headache, denies any abdominal pain other than post surgery, is down to 2 now, she says, much better. She does have her chronic fibromyalgia pain that bothers her, but otherwise, she is feeling great. She says she is "ready to go home." The patient also says that she had a fever because she had 4 blankets on and she is always "hot with her fibromyalgia." PAST MEDICAL HISTORY: 1. Positive for fibromyalgia. 2. The patient has hypertension. 3. Osteoarthritis. PAST SURGICAL HISTORY: She had a tubal ligation and hemorrhoidectomy. SOCIAL HISTORY: Negative for smoking, alcohol or illicit drug use. ALLERGIES: LISTED ALLERGIC TO PENICILLIN, ALTHOUGH THAT CAUSES STOMACH UPSET, NO TRUE ALLERGY. CURRENT MEDICATIONS: Reviewed. The patient is not on any antibiotics. REVIEW OF SYSTEMS: As per HPI. All other systems reviewed are negative. PHYSICAL EXAMINATION: GENERAL: Alert and oriented female, not in any distress. VITAL SIGNS: Stable. Temperature 97.6, the T-max last night was 101.1. HEENT: NAD. NECK: Supple, no JVP, no lymphadenopathy. LUNGS: Clear. HEART: S1, S2 regular. ABDOMEN: Soft, nontender. Incisions are unremarkable. No tenderness, no rebound or guarding. EXTREMITIES: No edema, cyanosis. SKIN: Unremarkable. NEUROLOGIC: The patient is neurologically intact. LABORATORY DATA: White count is normal. Platelets are normal. BUN and creatinine is normal. Her total bilirubin is actually improving nicely, is down to 1.8. She does have high calcium of 11.3 for some reason, may need further workup for that and can be done outpatient. ALT and AST is improving. Alkaline phosphatase is improving, and the lipase has improved. In fact, her parathyroid is 136, that is pretty high. IMPRESSION: 1. Isolated fever. There is no clinical evidence for any infection. 2. Gallstone pancreatitis, status post laparoscopic cholecystectomy. 3. Hypercalcemia, likely primary hyperparathyroidism. 4. Fibromyalgia. RECOMMENDATIONS: No need for any antibiotics. The patient can be discharged from the ID standpoint of view. If she does have fever, then please call me. Thank you very much, Dr. Peters, for giving me the opportunity to participate in this patient's care. ANKUR JO MD DR: BAILEY/eugene JOB#: [id number] / [id number]
--- NOTE | 2018-01-19 14:07 | PATHOLOGY ---
[facility] Accession Number: [id number] . 01 Material submitted: . GALLBLADDER . 01 Clinical history: . Gallstone pancreatitis . 02 Diagnosis: Gallbladder, laparoscopic cholecystectomy: - Cholelithiasis. - Chronic cholecystitis. . ([facility] ER:[facility]; 01/19/18) [facility]/01/19/2018 . 02 Comment: There is no evidence of malignancy. . (J[facility]:mm; 01/19/18) . 02 Electronically signed: . Darryl Augustine MD, Pathologist NPI- [id number] . 01 Gross description: . The specimen is received in formalin, labeled "Patricia Conde, gallbladder". Received is an intact gallbladder measuring 8.2 x 2.9 x 2.0 cm in greatest dimensions displaying pink-basurto to adipose covered serosal surfaces. Opening the gallbladder reveals a velvety, bile-stained mucosa with a gallbladder wall thickness of 0.1 cm. The lumen of the gallbladder is filled with thick light green material. Calculi are present displaying a light basurto and multifaceted appearance, and no masses or lesions are noted grossly. [employer] sections, to include the proximal margin, are submitted in cassette A1. ([facility]; 01/16/2018) QAC/QAC . 02 Pathologist provided ICD-10: K80.10 . 02 CPT . 032277 Specimen Comment: A courtesy copy of this report has been sent to Specimen Comment: [phone], , . Specimen Comment: Report sent to ,DR HAMM / DR BURTON Specimen Comment: A duplicate report has been generated due to demographic updates. Performed at: [address] [place] [address] [address], [place], [place] [id number] MD Kev Antonio MD Phone: [phone] Performed at: [address] [id number] MD Darryl Augustine MD Phone: [phone]
== END 2018-01-16 16:00 | disposition home or self-care (01) | DRG 417 ==
LOC: 4 NORTH 16:19
PROVIDERS: ADMIT Internal Medicine; ATTEND Internal Medicine
PROC: 0DJ08ZZ Inspection of Upper Intestinal Tract, Via Natural or Artificial Opening Endoscopic (ICD-10-PCS; 2018-01-10)
PROC: BF101ZZ Fluoroscopy of Bile Ducts using Low Osmolar Contrast (ICD-10-PCS; 2018-01-15)
PROC: 0F798ZZ Dilation of Common Bile Duct, Via Natural or Artificial Opening Endoscopic (ICD-10-PCS; 2018-01-15)
PROC: 0FT44ZZ Resection of Gallbladder, Percutaneous Endoscopic Approach (ICD-10-PCS; principal; 2018-01-15 11:45)
DX: K85.10 Biliary acute pancreatitis without necrosis or infection (principal); K83.1 Obstruction of bile duct; E21.0 Primary hyperparathyroidism; E87.6 Hypokalemia; I10 Essential (primary) hypertension; K26.9 Duodenal ulcer, unspecified as acute or chronic, without hemorrhage or perforation; M15.9 Polyosteoarthritis, unspecified; M79.7 Fibromyalgia; Z82.49 Family history of ischemic heart disease and other diseases of the circulatory system; Z83.3 Family history of diabetes mellitus; Z88.0 Allergy status to penicillin; Z88.8 Allergy status to other drugs, medicaments and biological substances; Z98.51 Tubal ligation status
CPT/HCPCS: 36415; 43261; 74300; 74328; 80048; 80053; 81001; 83690; 83970; 84100; 85025; 85027; 85610; 87040; 87086; 88304; A7015; C1726; J0330; J1100; J2001; J2185; J2250; J2405; J2704; J2710; J3010; J3490; J7030; J7042; J7120; Q9967